=== PATIENT | male | born 1960 | race Caucasian/White ===

== ENCOUNTER 2020-09-17 10:59 | Inpatient (IN) | payer MEDICAID, SELFPAY ==
[2020-09-17] VITALS (9 sets, daily range): BP systolic 144–174; BP diastolic 80–94; PULSE 70–89; RESP 16–18; TEMP 36.3–37; O2SAT 84–98; BMI 17.3; BMI 17.4
--- NOTE | 2020-09-17 11:03 | HMH.EDGENADL ---
ED Disposition Clinical Impression: Hypoxia, COPD exacerbation, Hypokalemia Pneumonia Qualifiers: Pneumonia type: due to unspecified organism Laterality: bilateral Lung location: unspecified part of lung Qualified Code(s): J18.9 - Pneumonia, unspecified organism Disposition: Admitted As Inpatient Condition on Discharge: Fair Referrals: PCP,No [Primary Care Provider] - - Critical Care Critical Care Time: No Attestation: On , the high probability of a clinically significant, sudden or life threatening deterioration of the following system(s) required my full and direct attention, intervention and personal management. The time I documented below is in addition to time spent performing reported procedures but includes the following listed in this critical care notation. Medical Decision Making - Medical Records Medical records reviewed: Yes: I reviewed the patient's medical records. - Harvey Inquiry Pt receiving controlled substance: No Vital Signs: 09/17/20 11:00 09/17/20 11:50 09/17/20 12:21 Temperature 98.6 F Temperature Source Oral Pulse Rate [Right] 77 80 70 Respiratory Rate 18 Blood Pressure [Right Arm] 144/90 H 157/91 H Blood Pressure Mean [Right Arm] 108 113 Blood Pressure Source [Right Arm] Automatic Cuff Automatic Cuff Automatic Cuff Blood Pressure Position [Right Arm] Sitting Sitting Sitting 02 Sat by Pulse Oximetry 91 L 91 L 92 L Oxygen Delivery Method Room Air Nasal Cannula Nasal Cannula Nasal Cannula Oxygen Flow Rate (LPM) 2 6 6 - Lab Data Lab Results 09/17/20 12:15: WBC 10.8, RBC 3.83 L, Hgb 10.9 L, Hct 33.1 L, MCV 86.6, MCH 28.4, MCHC 32.8, RDW 15.2, Plt Count 361, MPV 7.8, Neut % (Auto) 92.7 H, Lymph % (Auto) 5.0 L, [place] % (Auto) 2.1, Eos % (Auto) 0.0 L, Baso % (Auto) 0.1, Neut # (Auto) 10.1 H, Lymph # (Auto) 0.5 L, [place] # (Auto) 0.2, Eos # (Auto) 0.0, Baso # (Auto) 0.0, Total Counted 100, Neutrophils % (Manual) 91 H, Lymphocytes % (Manual) 6 L, Monocytes % (Manual) 3, Platelet Estimate Normal, RBC Morphology Normal 09/17/20 12:15: Sodium 142, Potassium 2.4 L*, Chloride 96 L, Carbon Dioxide 40 H, Anion Gap 8.4, BUN 22 H, Creatinine 0.90, Estimated Creat Clear 73, Estimated GFR 86, Est GFR ( Amer) 105, Glucose 94, Calcium 9.1, Troponin I < 0.01 09/17/20 12:15: NT-Pro-B Natriuret Pep 1080 H 09/17/20 12:15: Magnesium 1.7 Result diagrams: 09/17/20 12:15 09/17/20 12:15 Orders (Tests/Meds): ED MEDICATIONS Generic Name Dose Route Start Last Admin Trade Name Freq PRN Reason Stop Dose Admin Potassium Chloride/Water 100 mls @ 50 mls/hr 09/17/20 12:38 Potassium Chloride 20meq/100ml Ivpb IV 09/17/20 16:37 Q2H MARIEL Cefepime HCl 2 gm/ Sodium 100 mls @ 200 mls/hr 09/17/20 13:15 09/17/20 13:23 Chloride IV 10/01/20 13:14 200 mls/hr Q12H MARIEL Administration Protocol Miscellaneous 1 each 09/17/20 13:15 Vancomycin Consult Request * 10/17/20 13:14 CONSULT PHARMACY MARIEL Discontinued Medications Generic Name Dose Route Start Last Admin Trade Name Freq PRN Reason Stop Dose Admin Albuterol/Ipratropium 2 puff 09/17/20 11:05 09/17/20 11:36 Combivent 20mcg/100mcg Respimat Inhaler IH 09/17/20 11:06 2 puff ONCE ONE Administration Lactated Ringer's 1,000 mls @ 999 mls/hr 09/17/20 11:15 09/17/20 12:10 Lactated Ringer's 1000 Ml Bag IV 09/17/20 12:15 999 mls/hr .Q1H1M MARIEL Administration Iopamidol 70 ml 09/17/20 13:00 09/17/20 13:01 Iopamidol-370 (76%);100ml Bottle IV 09/17/20 13:01 70 ml ONCE ONE Administration Miscellaneous 1 unit 09/17/20 11:05 09/17/20 11:36 Aerochamber/Optihaler MC 09/17/20 11:06 Not Given ONCE ONE Potassium Chloride 40 meq 09/17/20 12:37 09/17/20 13:25 Potassium Chloride 20meq Tab PO 09/17/20 12:38 40 meq ONCE ONE Administration Prednisone 60 mg 09/17/20 11:05 09/17/20 12:09 Prednisone 20mg Tab PO 09/17/20 11:06 60 mg ONCE ONE Administration Sodium Chloride 1
--- NOTE | 2020-09-17 11:05 | CT_ITS ---
PROCEDURE: CT ANGIO CHEST CLINCIAL INDICATION: acute hypoxia recently discharged from hospital [place] COMPARISON: CR XR CHEST PORTABLE from 09/17/2020 TECHNIQUE: IV Contrast: 70ML Isovue 370 Axial images obtained with sagittal and coronal reformats. All CT scans at the facility use one or more dose reduction, viz: automated exposure control, ma/kV adjustment per patient size (including targeted exams where dose is matched to indication, i.e. head), or iterative reconstruction technique. FINDINGS: HEART AND MEDIASTINAL STRUCTURES: No evidence of pulmonary embolus, aortic aneurysm, or aortic dissection. Or coronary artery calcifications are present. There is an overall slight increased density of the mediastinal and hilar fat of questionable clinical significance. LUNGS AND PLEURAL SPACES: There are changes of COPD. There is superimposed ground-glass attenuation upon COPD/pulmonary fibrosis changes resulting in a crazy paving pattern most prominent in the right lower lobe but also in the left lower lobe. Covid19 pneumonia is considered. There are coalescent densities in both lower lobes consistent with pneumonia. Nodular opacities are present in the left lower lobe and in the right lower lobe as well which could be due to nodular areas of consolidation versus pulmonary nodules. Convalescent follow-up is suggested. BONY STRUCTURES: Degenerative changes thoracic spine UPPER ABDOMEN: The patient's lack of body fat limits evaluation of the abdomen. There is a subcapsular area of I so density along the right hepatic lobe posteriorly measuring 4 by 1.2 cm and could represent a resolving subcapsular hematoma. There is splenomegaly at 13 cm. There is generalized ascites in the upper abdomen. Patchy enhancement noted of the kidneys on both sides and could be due bilateral pyelonephritis or sequela from hypotension. There are atherosclerotic changes of the aorta and its branch vessels. There is left-sided hydronephrosis versus parapelvic renal cyst. Borderline splenomegaly at 13 cm. ADDITIONAL FINDINGS: No other significant abnormalities. IMPRESSION: 1. No evidence of pulmonary embolus aortic aneurysm or dissection. 2. Diffuse bilateral pneumonia with apical sparing with a crazy paving pattern which may be seen with Covid19 pneumonia superimposed upon COPD. There is also alveolar consolidation in the right lower lobe consistent with pneumonia. No effusions. 3. There is upper abdominal ascites with borderline splenomegaly and a suspected resolving subcapsular hematoma of the liver posteriorly 4. Patchy enhancement of the cortex of both kidneys which may be seen with pyelonephritis or hypotension. There is left-sided hydronephrosis versus parapelvic renal cyst. Dictated by: Zechariah Blake MD 09/17/2020 13:25 Zechariah Blake MD in [place] 09/17/2020 13:25
--- NOTE | 2020-09-17 11:05 | XR_ITS ---
PROCEDURE: XR CHEST PORTABLE CLINICAL HISTORY: COPD with hypoxia COMPARISON: No exams were available for comparison FINDINGS: The cardiomediastinal silhouette and pulmonary vascularity are within normal limits. COPD changes with prominent bilateral lower lobe pneumonia with associated pulmonary fibrosis.. The pneumonia is worse on the right compared to the left. There are some atelectatic or fibrotic changes in the left lower lobe. No acute bony findings. IMPRESSION: COPD with pulmonary fibrosis with bilateral pneumonia Dictated by: Zechariah Blake MD 09/17/2020 11:58 Zechariah Blake MD in [place] 09/17/2020 11:58
--- NOTE | 2020-09-17 11:08 | PC.NURSE ---
RT called to come give inhaler to pt.
--- NOTE | 2020-09-17 11:23 | ECG_ITS ---
APPROVED REPORT Exam: Resting ECG HR:88 bpm ECG Measurements Heart Rate 88 AXES ME 120 P 71 QRSd 90 QRS 66 QT 456 T 73 QTc 551 Conclusion Sinus rhythm with premature supraventricular complexes Possible Left atrial enlargement ST & T wave abnormality, consider inferolateral ischemia Prolonged QT Abnormal ECG Electronically signed by : Jose Ring, 09/18/2020 11:57:58
--- NOTE | 2020-09-17 11:45 | PC.NURSE ---
placed 20g in upper arm with US
--- NOTE | 2020-09-17 11:58 | PC.NURSE ---
inserted IV via US notified lab to come draw blood
[2020-09-17 12:31] LABS: Chloride 96 mmol/L (98-107); Sodium 142 mmol/L (136-145)
[2020-09-17 12:32] LABS: Basophils % 0.1 % (0.1-2.0); Hematocrit 33.1 % (42.0-52.0); Hemoglobin 10.9 g/dL (14.1-18.0); Lymphocytes # 0.5 K/mm3 (0.7-4.5); Mean Corpuscular HGB Conc 32.8 g/dL (31.8-35.4); Mean Corpuscular Hemoglobin 28.4 pg (27.0-31.2); Mean Corpuscular Volume 86.6 fl (80-94); Mean Platelet Volume 7.8 fl (7.4-10.4); Monocytes # 0.2 K/mm3 (0.1-1.0); Monocytes % 2.1 % (1.7-9.3); Neutrophils # 10.1 K/mm3 (1.8-7.8); Neutrophils % 92.7 % (37.0-80.0); Platelet Count 361 K/mm3 (142-424); Red Blood Count 3.83 M/mm3 (4.60-6.20); Red Cell Distribution Width 15.2 % (11.5-17.5); White Blood Count 10.8 K/mm3 (4.8-10.8)
[2020-09-17 12:34] LABS: Blood Urea Nitrogen 22 mg/dl (9-20); Calcium 9.1 mg/dl (8.4-10.2); Creatinine Clearance Estimated 73 mL/min (50-200); Estimated Glomerular Filt Rate 86 ml/min (>60); GFR (African American) 105 ML/MIN (>60); Glucose 94 mg/dl (74-100)
[2020-09-17 12:35] LABS: Potassium 2.4 mmoL/L (3.5-5.1)
[2020-09-17 12:36] LABS: Anion Gap 8.4 mEq/L (5-15); Carbon Dioxide 40 mmol/L (22.0-30.0); MANUAL DIFFERENTIAL MANUAL DIFFERENTIAL (MANUAL DIFF)
[2020-09-17 12:45] LABS: NT Pro Brain Natriuretic Pep. 1080 pg/mL (0-125)
[2020-09-17 12:46] LABS: Adenovirus,PCR Not Detected (NotDetected); Bordetella Pertussis Not Detected (NotDetected); Chlamydophila Pneumoniae, PCR Not Detected (NotDetected); Coronavirus 229E Not Detected (NotDetected); Coronavirus NL63 Not Detected (NotDetected); Coronavirus OC43 Not Detected (NotDetected); Coronovirus HKU1,PCR Not Detected (NotDetected); Human Metapneumovirus Not Detected (NotDetected); Influenza A, PCR Not Detected (NotDetected); Influenza AH1, 2009 Not Detected (NotDetected); Influenza AH1, PCR Not Detected (NotDetected); Influenza AH3,PCR Not Detected (NotDetected); Influenza B, PCR Not Detected (NotDetected); Mycoplasma Pneumoniae, PCR Not Detected (NotDetected); Parainfluenza 1, PCR Not Detected (NotDetected); Parainfluenza 2, PCR Not Detected (NotDetected); Parainfluenza 3, PCR Not Detected (NotDetected); Parainfluenza 4, PCR Not Detected (NotDetected); Respiratory Syncytial Virus Not Detected (NotDetected); Rhinovirus/Enterovirus Not Detected (NotDetected)
[2020-09-17 12:48] LABS: Troponin I < 0.01 ng/ml (0.00-0.034)
[2020-09-17 13:11] LABS: Lymphocytes % 6 % (10-50); Monocytes % 3 % (2-9); Neutrophils % 91 % (42-76); Platelet Estimate Normal; RBC Morphology Normal; Total Cells Counted 100
--- NOTE | 2020-09-17 13:20 | PC.NURSE ---
Pt up to restroom by w/c
[2020-09-17 13:25] LABS: Magnesium 1.7 mg/dl (1.6-2.3)
--- NOTE | 2020-09-17 13:34 | PC.NURSE ---
pt reports he is no straws with drinks r/t aspiration risk.
--- NOTE | 2020-09-17 13:39 | PC.NURSE ---
Dr Breen speaking with Dr Thompson.
[2020-09-17 13:48] LABS: Coronavirus 19 IgG Antibody Positive (Negative)
[2020-09-17 13:49] LABS: Coronavirus 19 IgM Antibody Positive (Negative)
--- NOTE | 2020-09-17 13:50 | PC.NURSE ---
notified pharmacy of vancomycin consult on pt, spoke with Igor
--- NOTE | 2020-09-17 14:03 | HMH.PHACONS ---
- Pharmacy Consult Date: 09/17/20 Time: 14:03 Referring provider: DR. LUIS Reason for Consult:: VANCOMYCIN DOSING Allergies and ADEs:: Allergies Allergy/AdvReac Type Severity Reaction Status Date / Time No Known Allergies Allergy Verified 09/17/20 11:08 Home Medications:: Home Medications Medication Instructions Recorded Confirmed Type No Known Home Medications 09/17/20 09/17/20 History Height: 1.83 m Weight: 58.06 kg Laboratory Results:: Laboratory Results - last 24 hr 09/17/20 12:15: WBC 10.8, RBC 3.83 L, Hgb 10.9 L, Hct 33.1 L, MCV 86.6, MCH 28.4, MCHC 32.8, RDW 15.2, Plt Count 361, MPV 7.8, Neut % (Auto) 92.7 H, Lymph % (Auto) 5.0 L, [place] % (Auto) 2.1, Eos % (Auto) 0.0 L, Baso % (Auto) 0.1, Neut # (Auto) 10.1 H, Lymph # (Auto) 0.5 L, [place] # (Auto) 0.2, Eos # (Auto) 0.0, Baso # (Auto) 0.0, Total Counted 100, Neutrophils % (Manual) 91 H, Lymphocytes % (Manual) 6 L, Monocytes % (Manual) 3, Platelet Estimate Normal, RBC Morphology Normal 09/17/20 12:15: Sodium 142, Potassium 2.4 L*, Chloride 96 L, Carbon Dioxide 40 H, Anion Gap 8.4, BUN 22 H, Creatinine 0.90, Estimated Creat Clear 73, Estimated GFR 86, Est GFR ( Amer) 105, Glucose 94, Calcium 9.1, Troponin I < 0.01 09/17/20 12:15: NT-Pro-B Natriuret Pep 1080 H 09/17/20 12:15: Magnesium 1.7 09/17/20 12:15: SARS-CoV-2 IgG Ab (Rapid) Positive A, SARS-CoV-2 IgM Ab (Rapid) Positive A Assessment and Plan - Assessment and plan all Dx Assessment and Plan for all problems:: Pharmacokinetic dosing service Objective: Patient: Floor: Age: 60 yo Serum creatinine: 0.9 mg/dL Height: 71.7 Inches Weight (kg): 58 Assessment: IBW (kg): 76.91 Dosing wt(kg): 58 Estimated Creatinine clearance (ml/min): 72.5 CRCL method: Cockcroft and Gault using ibw(default). Drug selected: Vancomycin Loading dose (mg): 0 Vd (liters): 37.7 (factor used: 0.65 L/kg) Feroz (hr-1): 0.065 Half life (hrs): 10.66 Recommended dose: 1000 mg Interval: 18 hrs Infusion time (hrs): 2.0 Predicted peak (mcg/mL): 36.1 Predicted trough (mcg/mL): 12.76 Total body weight is being used for vancomycin dosing. Recommendations: Give Vancomycin 1000 mg q 18 hrs with an expected Cpeak of 36.1 mcg/ml and an expected Ctrough of 12.76 mcg/ml Thank you for the consult, will continue to follow. -SAMUEL BARTHOLOMEW, MOISESD
--- NOTE | 2020-09-17 14:16 | PC.NURSE ---
Family left phone number to contact them if pt needed anything. [phone]
--- NOTE | 2020-09-17 14:59 | PC.NURSE ---
lab called with a positive covid result aware
[2020-09-17 15:01] LABS: Coronavirus 19, PCR Detected (NotDetected)
[2020-09-17 15:13] LABS: Troponin I < 0.01 ng/ml (0.00-0.034)
--- NOTE | 2020-09-17 17:04 | HMH.HP ---
*Admission Date: 09/17/20 <Miriam Overton - 09/17/20 17:43> *Chief complaint: Shortness of breath <Miriam Overton - 09/17/20 17:43> *History of present illness: Mr. Sawant is a 60-year-old male with history of tobacco abuse and hypertension, COPD and recent colostomy secondary to bowel perforation and discharged from the hospital on 09/07/2020 who presented to [facility] complaining of shortness of breath. He states the dyspnea started about 3 days ago and has progressed. He also describes a cough which is mostly nonproductive. He was recently started on inhalers since diagnosis of COPD and has been using it with minimal relief. When he went outside this morning to smoke he had worsening shortness of breath. He denied chest pain, fever/chills and other respiratory symptoms. On arrival to the emergency room his saturations on room air was around 80%. He did have some conversational dyspnea With evaluation in the emergency room he was found to have a potassium of 2.4 and was given IV potassium. O2 sats did improve with nasal O2. The concern was for hospital-acquired pneumonia and he was started on vancomycin and cefepime for MRSA/Pseudomonas coverage. CBC revealed a white blood cell count of 10,800 with a hemoglobin of 10.9 hematocrit of 33.1. Blood chemistries did reveal the potassium of 2.4 with a sodium of 142. BUN was 22 and a creatinine 0.9. Magnesium was normal at 1.7. Troponin I was 0.01x2. BNP was 1080. Covid PCR was positive as were IgG and IgM. He had a CTA of the chest to rule out pulmonary embolism due to his recent surgery which revealed no evidence of pulmonary emboli, aortic aneurysm or dissection. It did reveal diffuse bilateral pneumonia with apical sparing with a crazy paving pattern often seen with COVID-19 pneumonia superimposed upon COPD. Also noted were a large consolidation in the right lower lobe consistent with pneumonia and no effusions. He also was noted to have abdominal ascites with borderline splenomegaly and a suspected resolving subcapsular hematoma of the liver posteriorly as well as patchy enhancement of the cortex of both kidneys which may be seen with pyelonephritis or hypotension. Patient was admitted for further evaluation and treatment to the Covid unit. At the time of this exam patient states he was breathing fine and denied chest pain. He was thirsty and requested Pop. <Miriam Overton 09/17/20 17:43> [facility] History Medical History: Reports:: Chronic Obstructive Pulmonary Disease (COPD), Depression, Gastroesophageal Reflux Disease(GERD), Hypertension Denies:: Diabetes Mellitus Type 2 <Miriam Overton 09/17/20 17:43> *Have you ever received a pneumonia vaccine?: No <Miriam Overton 09/17/20 17:43> *Have you received a flu vaccine this season?: Yes <Miriam Overton 09/17/20 17:43> Other Medical History: Reports: Anemia <Miriam Overton 09/17/20 17:43> Comment:: He has had an accidental head injury and has chronic back pain <TianMiriam Santos 09/17/20 17:43> Other Surgeries: Yes: Other <Miriam Overton 09/17/20 17:43> Comment: Colon resection with colostomy for perforation in August 2020. <Miriam Overton 09/17/20 17:43> - *Social History Smoking Status: Current every day smoker <Miriam Overton 09/17/20 17:43> *Occupational Status:: previously employed <Miriam Overton 09/17/20 17:43> Housing: house <Miriam Overton 09/17/20 17:43> Household Members: family <Miriam Overton 09/17/20 17:43> *Travel in the last 8 weeks: None <Miriam Overton 09/17/20 17:43> Family Hx:: no Diabetes <TianMiriam Santos 09/17/20 17:43> Comment: Heart disease <TianMiriam Santos 09/17/20 17:43> Review of Systems - Constitutional Reports fever(s), Reports weight loss (He has lost 30 pounds in the last few months.) <Overton,Miriam 09/17/20 17:43> - Eyes Denies change in vision <Miriam Overton 09/17/20 17:43> - ENT Reports dry mouth, Denies ear pain, Denies sore throat <Tian
[2020-09-17 20:00] LABS: Troponin I < 0.01 ng/ml (0.00-0.034)
--- NOTE | 2020-09-17 21:34 | PC.NURSE ---
open wound to coccyx 5 x2.5x0.5. dsg applied. Redness surrounding wound. Serous drainage with mod odor on old dressing .
[2020-09-18] VITALS: BP 146/84; PULSE 69; RESP 18; TEMP 36.6; O2SAT 95
[2020-09-18 04:00] VITALS: BP 160/90; PULSE 73; RESP 20; TEMP 36.6; O2SAT 95
--- NOTE | 2020-09-18 05:15 | PC.NURSE ---
Pt A&Ox4. Inspiratory and Expiratory rhonchi heard scattered t/o all lung still per auscultation. Pt continues to be on 4L NC with o2 sats sustaining between 90-92%. +2 pitting edema noted at bilat ankles and feet. Open area to coccyx received a dressing change this shift. Previous dressing had moderate amount of yellow drainage. Polynem and ABD pads were applied to the area. Pt c/o lower back pain x1 this shift. PRN acetaminophen administered per DEC. Pt's home meds are in COVMO units clean utility room at this time. No other acute changes or complaints at this time. Will continue to monitor.
[2020-09-18 05:30] VITALS: BMI 15.5
--- NOTE | 2020-09-18 05:31 | PC.NURSE ---
nurse is aware of the difference in the patients weight. there wasnt a scale in patients room when we went to weigh him.the other weight charted may be what patient told them.
--- NOTE | 2020-09-18 06:15 | PC.NURSE ---
Pt fell in room while getting up from using bedpan on arm chair. Pt states he tripped over the chair of the arm when attempting to get up. When staff entered pt's room NC was off. This nurse assessed pt and he remained A&O. VSS: 173/102 90 HR 22 RR 86% 4 L NC (when pt was on RA, o2 sat was 68%) Pt c/o right and left hip pain. Upon assessment, hips were not red or tender to touch. 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 MD Thompson made aware. Bilat hip XR ordered.
--- NOTE | 2020-09-18 06:25 | XR_ITS ---
PROCEDURE: XR HIP BI W PEL1V CLINICAL INDICATION: pt fell Posttraumatic pain COMPARISON: No exams were available for comparison FINDINGS: No fracture or dislocation is evident. No significant degenerative change. No lytic or blastic change. Unremarkable soft tissues. Contrast is present in the urinary bladder and there is also increased density about the perineal region which may be related to excreted urine. IMPRESSION: No acute findings. Dictated by: Zechariah Blake MD 09/18/2020 08:41 Zechariah Blake MD in [place] 09/18/2020 08:41
[2020-09-18 07:30] VITALS: BP 154/93; PULSE 89; RESP 18; TEMP 36.3; O2SAT 82
--- NOTE | 2020-09-18 07:53 | HMH.PHAVTE ---
[facility] Pharmacy VTE Monitoring - Patient Demographics Admission date: 09/17/20 Report Date: 09/18/20 Time: 07:53 Allergies/Adverse Reactions: Patient Allergies No Known Allergies Allergy (Verified 09/17/20 11:08) Height: 1.83 m Weight: 52.163 kg Patient Problems: Current Active Problems Hypoxia (Acute) COPD exacerbation (Acute) Hypokalemia (Acute) Pneumonia (Acute) Body mass index [BMI] 19.9 or less, adult (Chronic) COVID-19 (Acute) Pneumonia due to COVID-19 virus (Acute) Acute respiratory failure with hypoxia (Acute) Hypertension (Acute) Status post colon resection (Chronic) Colostomy in place (Chronic) Hypokalemia (Acute) Tobacco use disorder (Acute) COPD (chronic obstructive pulmonary disease) (Acute) - VTE Risk Labs: VTE Related Lab Results Hgb 10.9 g/dL (14.1-18.0) L 09/17/20 12:15 Hct 33.1 % (42.0-52.0) L 09/17/20 12:15 Plt Count 361 K/mm3 (142-424) 09/17/20 12:15 BUN 22 mg/dl (9-20) H 09/17/20 12:15 Creatinine 0.90 mg/dl (0.66-1.25) 09/17/20 12:15 Estimated Creat Clear 73 mL/min (50-200) 09/17/20 12:15 Clinical Trial Participant: No - Prophylaxis VTE Prophylaxis Ordered?: Yes Types of VTE Prophylaxis: TEDS Knee High Location of Applied Device: Bilateral Lower Extremeties Pharmacologic Type: Enoxaparin
[2020-09-18 08:12] LABS: Basophils % 0.2 % (0.1-2.0); Hematocrit 32.7 % (42.0-52.0); Hemoglobin 10.5 g/dL (14.1-18.0); Lymphocytes # 0.7 K/mm3 (0.7-4.5); Lymphocytes % 8.2 % (10-50); Mean Corpuscular Volume 87.7 fl (80-94); Mean Platelet Volume 7.9 fl (7.4-10.4); Monocytes # 0.3 K/mm3 (0.1-1.0); Monocytes % 2.9 % (1.7-9.3); Neutrophils # 7.7 K/mm3 (1.8-7.8); Neutrophils % 88.6 % (37.0-80.0); Platelet Count 377 K/mm3 (142-424); Red Blood Count 3.73 M/mm3 (4.60-6.20); Red Cell Distribution Width 15.6 % (11.5-17.5); White Blood Count 8.6 K/mm3 (4.8-10.8)
[2020-09-18 08:14] LABS: MANUAL DIFFERENTIAL MANUAL DIFFERENTIAL (MANUAL DIFF)
[2020-09-18 08:17] LABS: Chloride 99 mmol/L (98-107); Potassium 3.1 mmoL/L (3.5-5.1); Sodium 139 mmol/L (136-145)
[2020-09-18 08:20] LABS: Alanine Aminotransferase 53 U/L (12-78); Albumin Level 2.7 g/dl (3.5-5.0); Albumin/Globulin Ratio 0.7 (1.1-1.8); Alkaline Phosphatase 294 U/L (38-126); Anion Gap 7.1 mEq/L (5-15); Aspartate Amino Transferase 95 U/L (17-59); Bilirubin,Total 0.5 mg/dl (0.2-1.3); Blood Urea Nitrogen 29 mg/dl (9-20); Calcium 9.1 mg/dl (8.4-10.2); Carbon Dioxide 36 mmol/L (22.0-30.0); Creatinine Clearance Estimated 65 mL/min (50-200); Estimated Glomerular Filt Rate 86 ml/min (>60); GFR (African American) 105 ML/MIN (>60); Globulin 3.7 g/dL (1.3-3.2); Glucose 124 mg/dl (74-100); Total Protein,Serum 6.4 g/dl (6.3-8.2)
[2020-09-18 08:35] LABS: Lymphocytes % 6 % (10-50); Monocytes % 2 % (2-9); Neutrophils % 92 % (42-76); Platelet Estimate Normal; RBC Morphology Normal; Total Cells Counted 100
--- NOTE | 2020-09-18 08:49 | HMH.ACPN2 ---
Internal Medicine - PN: Subj *Date: 09/18/20 *Time: 08:49 Interval history: Respiratory status stable over night although has not always been compliant with wearing his O2. He did fall this AM while out of bed. Hit on right hip. Xray negative for fracture. Denies SOA. Exam Vital signs and Labs for Last 24 Hours: Temp Pulse Resp BP Pulse Ox 97.3 F L 89 18 154/93 H 82 L 09/18/20 07:30 09/18/20 07:30 09/18/20 07:30 09/18/20 07:30 09/18/20 07:30 Laboratory Results - last 24 hr 09/17/20 12:15: WBC 10.8, RBC 3.83 L, Hgb 10.9 L, Hct 33.1 L, MCV 86.6, MCH 28.4, MCHC 32.8, RDW 15.2, Plt Count 361, MPV 7.8, Neut % (Auto) 92.7 H, Lymph % (Auto) 5.0 L, [place] % (Auto) 2.1, Eos % (Auto) 0.0 L, Baso % (Auto) 0.1, Neut # (Auto) 10.1 H, Lymph # (Auto) 0.5 L, [place] # (Auto) 0.2, Eos # (Auto) 0.0, Baso # (Auto) 0.0, Total Counted 100, Neutrophils % (Manual) 91 H, Lymphocytes % (Manual) 6 L, Monocytes % (Manual) 3, Platelet Estimate Normal, RBC Morphology Normal 09/17/20 12:15: Sodium 142, Potassium 2.4 L*, Chloride 96 L, Carbon Dioxide 40 H, Anion Gap 8.4, BUN 22 H, Creatinine 0.90, Estimated Creat Clear 73, Estimated GFR 86, Est GFR ( Amer) 105, Glucose 94, Calcium 9.1, Troponin I < 0.01 09/17/20 12:15: NT-Pro-B Natriuret Pep 1080 H 09/17/20 12:15: Magnesium 1.7 09/17/20 12:15: SARS-CoV-2 IgG Ab (Rapid) Positive A, SARS-CoV-2 IgM Ab (Rapid) Positive A 09/17/20 12:38: Chlamy pneumoniae PCR Not detected, Adenovirus (PCR) Not detected, B. pertussis DNA (PCR) Not detected, Coronavirus OC43 (PCR) Not detected, Coronavirus HKU1 (PCR) Not detected, Coronavirus 229E (PCR) Not detected, SARS-CoV-2 (PCR) Detected A, Coronavirus NL63 (PCR) Not detected, Human Metapneumovir PCR Not detected, Influenza A (H1) PCR Not detected, Influ A (H1N1/09) PCR Not detected, Influenza A (H3) PCR Not detected, Influenza Type A (PCR) Not detected, Influenza Type B (PCR) Not detected, M. pneumoniae (PCR) Not detected, Parainfluenza 1 (PCR) Not detected, Parainfluenza 2 (PCR) Not detected, Parainfluenza 3 (PCR) Not detected, Parainfluenza 4 (PCR) Not detected, RSV (PCR) Not detected, Entero/Rhino (PCR) Not detected 09/17/20 14:45: Troponin I < 0.01 09/17/20 18:56: Troponin I < 0.01 09/18/20 08:00: WBC 8.6, RBC 3.73 L, Hgb 10.5 L, Hct 32.7 L, MCV 87.7, MCH 28.0, MCHC 32.0, RDW 15.6, Plt Count 377, MPV 7.9, Neut % (Auto) 88.6 H, Lymph % (Auto) 8.2 L, [place] % (Auto) 2.9, Eos % (Auto) 0.0 L, Baso % (Auto) 0.2, Neut # (Auto) 7.7, Lymph # (Auto) 0.7, [place] # (Auto) 0.3, Eos # (Auto) 0.0, Baso # (Auto) 0.0, Total Counted 100, Neutrophils % (Manual) 92 H, Lymphocytes % (Manual) 6 L, Monocytes % (Manual) 2, Platelet Estimate Normal, RBC Morphology Normal 09/18/20 08:00: Sodium 139, Potassium 3.1 L D, Chloride 99, Carbon Dioxide 36 H, Anion Gap 7.1, BUN 29 H D, Creatinine 0.90, Estimated Creat Clear 65, Estimated GFR 86, Est GFR ( Amer) 105, Glucose 124 H D, Calcium 9.1, Total Bilirubin 0.5, AST 95 H, ALT 53, Alkaline Phosphatase 294 H, Total Protein 6.4, Albumin 2.7 L, Globulin 3.7 H, Albumin/Globulin Ratio 0.7 L I & O for Last 24 hours: Intake & Output 09/15/20 09/16/20 09/17/20 09/18/20 11:59 11:59 11:59 11:59 Intake Total 480 / 480 Output Total 1300 / 1300 Balance -820 / -820 Weight 128 lb 115 lb Narrative: Alert, no respiratory distress. Color normal. CHest with generally diminished BS. Heart RRR. Abdomen soft, NT. RIght hip with bruising or deformity. Assessment and Plan (1) Pneumonia due to COVID-19 virus Status: Acute Category: Medical Code(s): U07.1 - COVID-19; J12.89 - Other viral pneumonia (2) COVID-19 Status: Acute Category: Medical Code(s): U07.1 - COVID-19 (3) Body mass index [BMI] 19.9 or less, adult Status: Chronic Category: Medical Code(s): Z68.1 - Body mass index [BMI] 19.9 or less, adult (4) Acute respiratory failure with hypoxia Status: Acute Category: Medical Code(s): J96.01 - Acute respiratory failur
--- NOTE | 2020-09-18 09:05 | HMH.PHAINT ---
Medication reconciliation completed using lists from pharmacy and physician office.
[2020-09-18 11:58] VITALS: BMI 15.5
[2020-09-18 12:00] VITALS: BP 169/97; PULSE 73; RESP 18; TEMP 36.2; O2SAT 92
[2020-09-18 16:00] VITALS: BP 153/98; PULSE 77; RESP 18; TEMP 36.4; O2SAT 96; O2SAT 97
--- NOTE | 2020-09-18 17:41 | PC.NURSE ---
shift note: pt has had an uneventful day. Complains of right hip pain at times from the fall last night. Pain relieved with Tylenol 1000mg po. Is tolerating a soft low fiber diet. On 6L NC cont with sats above 90%. Stage II noted to coccyx area. Asked to redress area and offered bath. He refused both today. Colostomy bag emptied once. Stool is brown and soft. He sat on bedpan in arm chair once today and passed mucus stool. 2+ pitting edema noted to BLE from mid calf to toes. Bilateral lungs clear. Cough is dry and hacky.
[2020-09-18 20:00] VITALS: BP 163/97; PULSE 76; RESP 18; TEMP 36.3; O2SAT 98
[2020-09-19] VITALS (10 sets, daily range): BP systolic 151–177; BP diastolic 88–99; PULSE 74–100; RESP 18–24; TEMP 36.4–36.7; O2SAT 86–96; BMI 16.2
--- NOTE | 2020-09-19 05:50 | PC.NURSE ---
patient has been successfully titrated down to 2 l nc. patient will desat to 82% with activity. recovers back to mid 90s within 20 min. breath sounds remain diminished throughout, respiratory rate below 20. patient has had cooperative and appropriate this shift. voiding clear, yellow urine.
--- NOTE | 2020-09-19 15:34 | PC.NURSE ---
Pt has been pleasant and cooperative this shift, remains on 2LNC at this time, oxygen saturations decrease with exertion and takes around 15 minutes to recover at rest, lung sounds diminished t/o, HR reg, 2+ pitting peripheral edema noted to BLE, alert and oriented x3, perrla, passenger conductor equal, colostomy with drainage bag intact, moderate output, voids per urinal without difficulty, abd soft and nontender, active bowel sounds in all quads, patient has stage II to coccyx with dsg in place, vss, no s/s of distress noted at this time, will continue to monitor for changes.
--- NOTE | 2020-09-19 17:06 | HMH.ACPN2 ---
Internal Medicine - PN: Subj *Date: 09/19/20 *Time: 17:06 Interval history: His only complaint is hip pain from his fall yesterday and chronic low back pain. He is requesting to start on pain medication he takes at home. From a respiratory standpoint he is stable. He denies shortness of breath. No significant cough. Room air sats are still dropping. Exam Vital signs and Labs for Last 24 Hours: Temp Pulse Resp BP Pulse Ox 97.5 F L 79 20 159/88 H 93 L 09/19/20 15:37 09/19/20 15:37 09/19/20 15:37 09/19/20 15:37 09/19/20 16:00 I & O for Last 24 hours: Intake & Output 09/17/20 09/18/20 09/19/20 09/20/20 11:59 11:59 11:59 11:59 Intake Total 480 / 480 1390 / 1390 440 / 440 Output Total 1700 / 1700 3550 / 3550 Balance -1220 / -1220 -2160 / -2160 440 / 440 Weight 128 lb 114 lb 10.246 oz 119 lb 8.589 oz Narrative: No respiratory distress. Breath sounds are generally diminished. No rales or wheezes. Heart is regular. Abdomen is soft and nontender. Extremities with pedal edema Assessment and Plan (1) Pneumonia due to COVID-19 virus Status: Acute Category: Medical Code(s): U07.1 - COVID-19; J12.89 - Other viral pneumonia (2) COVID-19 Status: Acute Category: Medical Code(s): U07.1 - COVID-19 (3) Body mass index [BMI] 19.9 or less, adult Status: Chronic Category: Medical Code(s): Z68.1 - Body mass index [BMI] 19.9 or less, adult (4) Acute respiratory failure with hypoxia Status: Acute Category: Medical Code(s): J96.01 - Acute respiratory failure with hypoxia (5) Hypertension Status: Acute Category: Medical Code(s): I10 - Essential (primary) hypertension (6) Status post colon resection Status: Chronic Category: Surgical Code(s): Z90.49 - Acquired absence of other specified parts of digestive tract (7) Colostomy in place Status: Chronic Category: Medical Code(s): Z93.3 - Colostomy status (8) Hypokalemia Status: Acute Category: Medical Code(s): E87.6 - Hypokalemia (9) Tobacco use disorder Status: Acute Category: Medical Code(s): F17.200 - Nicotine dependence, unspecified, uncomplicated (10) COPD (chronic obstructive pulmonary disease) Status: Acute Category: Medical Code(s): J44.9 - Chronic obstructive pulmonary disease, unspecified (11) Fall Status: Acute Category: Medical Code(s): W19.XXXA - Unspecified fall, initial encounter (12) Sacral decubitus ulcer Status: Acute Category: Medical Code(s): L89.159 - Pressure ulcer of sacral region, unspecified stage (13) Chronic back pain Status: Acute Category: Medical Code(s): M54.9 - Dorsalgia, unspecified; G89.29 - Other chronic pain - Assessment and plan all Dx Assessment and Plan for all problems:: Clinically stable. He has not produced a sputum. Continue current treatment. Add low-dose morphine for chronic back pain.
[2020-09-19 21:41] LABS: Vancomycin,Trough < 5.0 ug/mL (5.0-10.0)
--- NOTE | 2020-09-19 22:36 | PC.NURSE ---
[id number] received call from pharmacist after vanco trough results. order given to increase vancomycin dose. ordr faxed to pharmacy and carried out.
[2020-09-20] VITALS (9 sets, daily range): BP systolic 146–178; BP diastolic 75–104; PULSE 70–109; RESP 18–20; TEMP 35.8–36.7; O2SAT 85–99; BMI 15.5
--- NOTE | 2020-09-20 05:55 | PC.NURSE ---
pateint desats down to 82% with activity, recovers in about 20 mins back up into the mid 90s.
--- NOTE | 2020-09-20 08:53 | SW/DCPLANNER ---
Addendum entered by Linda Pereira 09/20/20 10:09: Lashaun with [employer] has stated that portable O2 tank will be delivered today. Original Note: This patient will need home O2 and portable tank at time of discharge per MD. Patient information and order will be faxed to [facility] this morning. I will have [facility] deliver portable tank to [facility] today due to possible discharge over weekend. I will follow up with [facility] once patient information and order is reviewed.
--- NOTE | 2020-09-20 08:58 | HMH.ACPN2 ---
Internal Medicine - PN: Subj *Date: 09/20/20 *Time: 08:32 Interval history: No new complaints. Still having some back pain. Denies shortness of breath. O2 sats dropping to 80% on room air but recover easily with 2 L of nasal oxygen Exam Vital signs and Labs for Last 24 Hours: Temp Pulse Resp BP Pulse Ox 97.2 F L 75 18 159/104 H 85 L 09/20/20 07:26 09/20/20 07:26 09/20/20 07:26 09/20/20 07:26 09/20/20 08:52 Laboratory Results - last 24 hr 09/19/20 20:30: Vancomycin Trough < 5.0 L I & O for Last 24 hours: Intake & Output 09/17/20 09/18/20 09/19/20 09/20/20 11:59 11:59 11:59 11:59 Intake Total 480 / 480 1390 / 1390 920 / 920 Output Total 1700 / 1700 3550 / 3550 1850 / 1850 Balance -1220 / -1220 -2160 / -2160 -930 / -930 Weight 128 lb 114 lb 10.246 oz 119 lb 8.589 oz 115 lb Narrative: He appears in no distress. Breath sounds are diminished. No rales or wheezes. Heart is regular. Extremities with 1+ pedal edema. Assessment and Plan (1) Pneumonia due to COVID-19 virus Status: Acute Category: Medical Code(s): U07.1 - COVID-19; J12.89 - Other viral pneumonia (2) COVID-19 Status: Acute Category: Medical Code(s): U07.1 - COVID-19 (3) Body mass index [BMI] 19.9 or less, adult Status: Chronic Category: Medical Code(s): Z68.1 - Body mass index [BMI] 19.9 or less, adult (4) Acute respiratory failure with hypoxia Status: Acute Category: Medical Code(s): J96.01 - Acute respiratory failure with hypoxia (5) Hypertension Status: Acute Category: Medical Code(s): I10 - Essential (primary) hypertension (6) Status post colon resection Status: Chronic Category: Surgical Code(s): Z90.49 - Acquired absence of other specified parts of digestive tract (7) Colostomy in place Status: Chronic Category: Medical Code(s): Z93.3 - Colostomy status (8) Hypokalemia Status: Acute Category: Medical Code(s): E87.6 - Hypokalemia (9) Tobacco use disorder Status: Acute Category: Medical Code(s): F17.200 - Nicotine dependence, unspecified, uncomplicated (10) COPD (chronic obstructive pulmonary disease) Status: Acute Category: Medical Code(s): J44.9 - Chronic obstructive pulmonary disease, unspecified (11) Fall Status: Acute Category: Medical Code(s): W19.XXXA - Unspecified fall, initial encounter (12) Sacral decubitus ulcer Status: Acute Category: Medical Code(s): L89.159 - Pressure ulcer of sacral region, unspecified stage (13) Chronic back pain Status: Acute Category: Medical Code(s): M54.9 - Dorsalgia, unspecified; G89.29 - Other chronic pain - Assessment and plan all Dx Assessment and Plan for all problems:: Clinically stable. Blood pressure has not been well controlled. Increased dose of Norvasc today. Oral potassium replacement added. Continue per orders.
--- NOTE | 2020-09-20 09:06 | HMH.PHACONS ---
- Pharmacy Consult Date: 09/20/20 Time: 09:06 Referring provider: DR. DAMICO Reason for Consult:: VANCOMYCIN TROUGH LEVEL AND DOSE CHANGE Allergies and ADEs:: Allergies Allergy/AdvReac Type Severity Reaction Status Date / Time No Known Allergies Allergy Verified 09/17/20 11:08 Home Medications:: Home Medications Medication Instructions Recorded Confirmed Type Albuterol Sulfate [Albuterol 2 puffs IH Q4HP PRN 09/17/20 09/17/20 History Sulfate Hfa] Amlodipine Besylate 5 mg PO DAILY 09/17/20 09/17/20 History Docusate Sodium [Docusate Sodium 100 mg PO DAILY 09/17/20 09/17/20 History 100mg Cap] Metoprolol Tartrate [Lopressor 12.5 mg PO BID 09/17/20 09/17/20 History 25mg tablet] Pantoprazole Sodium 40 mg PO DAILY 09/17/20 09/17/20 History Quetiapine Fumarate [Seroquel] 25 mg PO HS 09/17/20 09/17/20 History Tamsulosin HCl 0.4 mg PO DAILY 09/17/20 09/17/20 History Umeclidinium [place] [Incruse 62.5 mcg IH DAILY 09/17/20 09/17/20 History Ellipta] Venlafaxine HCl [Effexor XR 75mg 75 mg PO DAILY 09/17/20 09/17/20 History capsule] Acetaminophen [Acetaminophen 325mg 325 mg PO DAILY 09/18/20 09/18/20 History tab] Oxycodone HCl [Oxycodone 5mg tab 5 mg PO Q4-6H PRN 09/18/20 09/18/20 History (IR)] Oxycodone HCl/Acetaminophen 1 tab PO DAILY PRN 09/18/20 09/18/20 History [Percocet 10-325 mg Tablet] Height: 1.83 m Weight: 52.163 kg Laboratory Results:: Laboratory Results - last 24 hr 09/19/20 20:30: Vancomycin Trough < 5.0 L Medical History: Reports:: Chronic Obstructive Pulmonary Disease (COPD), Depression, Gastroesophageal Reflux Disease(GERD), Hypertension Denies:: Diabetes Mellitus Type 2 Assessment and Plan (1) Pneumonia due to COVID-19 virus Status: Acute Category: Medical Code(s): U07.1 - COVID-19; J12.89 - Other viral pneumonia (2) COVID-19 Status: Acute Category: Medical Code(s): U07.1 - COVID-19 (3) Body mass index [BMI] 19.9 or less, adult Status: Chronic Category: Medical Code(s): Z68.1 - Body mass index [BMI] 19.9 or less, adult (4) Acute respiratory failure with hypoxia Status: Acute Category: Medical Code(s): J96.01 - Acute respiratory failure with hypoxia (5) Hypertension Status: Acute Category: Medical Code(s): I10 - Essential (primary) hypertension (6) Status post colon resection Status: Chronic Category: Surgical Code(s): Z90.49 - Acquired absence of other specified parts of digestive tract (7) Colostomy in place Status: Chronic Category: Medical Code(s): Z93.3 - Colostomy status (8) Hypokalemia Status: Acute Category: Medical Code(s): E87.6 - Hypokalemia (9) Tobacco use disorder Status: Acute Category: Medical Code(s): F17.200 - Nicotine dependence, unspecified, uncomplicated (10) COPD (chronic obstructive pulmonary disease) Status: Acute Category: Medical Code(s): J44.9 - Chronic obstructive pulmonary disease, unspecified (11) Fall Status: Acute Category: Medical Code(s): W19.XXXA - Unspecified fall, initial encounter (12) Sacral decubitus ulcer Status: Acute Category: Medical Code(s): L89.159 - Pressure ulcer of sacral region, unspecified stage (13) Chronic back pain Status: Acute Category: Medical Code(s): M54.9 - Dorsalgia, unspecified; G89.29 - Other chronic pain - Assessment and plan all Dx Assessment and Plan for all problems:: BASED ON PATIENT FACTORS AND VANCOMYCIN TROUGH LEVEL OF <5, RECOMMEND INCREASING DOSE AND CHANGING DOSING INTERVAL TO Q12H. PHARMACY WILL OBTAIN TROUGH LEVEL 09/21/20 @ 1000 AND WILL ADJUST DOSE APPROPRIATE AT THAT POINT. -SAMUEL BARTHOLOMEW PHARMD
--- NOTE | 2020-09-20 14:17 | DIET.NUTRFU ---
Pt at risk malnutrition and with stage II PA. PO intakes 50% + protein supplement TID. Additional protein supplement added to diet order. Weight has remained stable. Tolerating low fiber/residue diet. Colostomy output moderate and normal consistency. Continuing to monitor.
--- NOTE | 2020-09-20 15:12 | HMH.PTWOUND ---
Rehab Inpt Wound Evaluation Rehab IP Wound Evaluation Start: 09/20/20 13:54 Freq: ONCE Status: Active Protocol: Document 09/20/20 15:09 PHOLUIS ANGEL (Rec: 09/20/20 15:12 PHOROMAR [id number]) Rehab PT Wound Assessment Subjective Subjective 60 yowm adm with COVID hypoxia . Sacral decubitus on admission. Wound Sacrum Wound Type Pressure Ulcer Is This a Chronic Wound Yes Wound Staging Stage II Query Text:Stage I - Unbroken, red skin, no blanching. Stage II - Skin broken, superficial skin loss involving epidermis alone or also dermis. Partial loss of skin layers. Stage III - Pressure area involves epidermis, dermis and subcutaneous tissue, full thickness skin loss. Stage IV - Pressure area involves epidermis, subcutaneous tissue, bone and other supportive tissue. Full thickness skin loss with extensive destruction of underlying tissue and structures. Wound Length (cm) 5.0 Wound Width (cm) 3.0 Wound Bed Appearance Graton Wound Margins Description Macerated Surrounding Tissue Appearance Bright Red Wound Drainage Description Serosanguineous Drainage Amount Moderate Primary Dressing Composite Comment optifoam gentle sacrum Wound Debridement Amount of Tissue None Removed Dressing Change Patient Tolerance Tolerated Well Plan/Recommendation Comment NSG to continue dressing changes as needed, no excisional sharp debridement required at this time. Recommend pt continue active pressure relief from this area as much as possible. Eval Complexity Eval Charge Codes 47705 - Moderate Complexity PHYSICIAN CERTIFICATION: I certify the specified therapy services for Irineo Sawant are required, authorized, and reviewed every 30 days.
--- NOTE | 2020-09-20 15:15 | PC.NURSE ---
Patient is resting comfortably in bed. Pain medication given to ease discomfort that patient states is chronic for him. Neurologically patient is intact, alert and oriented x 4. Patient has been pleasant throughout shift. GI patient has eaten roughly 50% of meals. Ostomy present, stool is semiformed and brown. Patients appears to be severely thin with prominent bone protrusion. No n/v/d. Patients ostomy supplies are with his brother who patient states works in [place] so he will not be able to get a change for his ostomy. patient has used urinal. Urine is yellow, clear. Patient got a bath today and did much of his care independently. Respiratory: Patient has done well using Incentive spirometer throughout shift. Oxygen is currently sat to 2l, which is what patient wears at home. It was noted that when patient lays on his side his oxygen level on 2l will be between 98-100%. Patient skin has poor turgor. DTI noted on his coccyx as mentioned in am biophysical. Drainage on dressing noted so dressing was removed. Contacted to request a woundcare consult, at which time pt recommended that we use a large optifoam silicone border sacral dressing. Additionally, it is recommended that patient uses antibacterial silver cut down to approximately the same circular size as the wound and then cover that with the sacral dressing. Dressing changed. Patient is highly encouraged to rotate on his side. Recommended that patient be a q2 hour turn while in the hospital to enable wound healing. Patient has been afebrile and had bouts of hypertension. Current bp is 142/87, hr 77, rr 22 and o2 sat is 97 on 2l. Patient is sleeping comfortably. Will continue to monitor.
--- NOTE | 2020-09-20 17:31 | PC.NURSE ---
While eating dinner patient was sitting at the side of the bed and became extremely short of air. O2 saturation read 72%. Increased patients oxygen from 2 to 4liters. Patient refused to sit back until he finished his green beans. Patient has since recovered but it took roughly 5 minutes to get his oxygenation back to within range. Will continue to monitor.
[2020-09-21] VITALS (10 sets, daily range): BP systolic 148–173; BP diastolic 85–99; PULSE 69–93; RESP 16–20; TEMP 36.5–36.7; O2SAT 87–98; BMI 14.2
--- NOTE | 2020-09-21 05:53 | PC.NURSE ---
Pt is A&Ox4 and has ambulated to the side of the bed 4x this shift with SBA and tolerated fair d/t desat to low 80s. Recovery time back to baseline is 5-15 minutes. Pt reports fatigue with these exertions but denies any dyspnea or SOA. Diminished lung sounds, scattered rhonchi on auscultation. Pt has had a weak, dry cough at times. At the beginning of the shift, pt was on 4LPM NC. Was able to wean pt down to 3LPM and maintained O2 for most of the shift, and at 5am pt was weaned down to 2LPM. However, had to increased back to 3LMP d/t pt sustaining sat <88%. Pt was turned by staff or turned self q2. Dressing to coccxy area in place, not visualized d/t packing and dressing placed by previous shift. +1, non-pitting edema edema to bilat feet. 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 Colostomy in place to LLQ of ABD, draining thin, light brown stool. Pt voids in urinal and has had an output of 1450ml. IS was completed several rounds and best @ 1000. Lovenox fort VTE. Call light within reach and pt has called out appropriately for assistance.
[2020-09-21 09:54] LABS: Vancomycin,Trough 15.1 ug/mL (5.0-10.0)
--- NOTE | 2020-09-21 10:05 | HMH.PHACONS ---
- Pharmacy Consult Date: 09/21/20 Time: 10:05 Referring provider: DR. DAMICO Reason for Consult:: VANCOMYCIN TROUGH LEVEL Allergies and ADEs:: Allergies Allergy/AdvReac Type Severity Reaction Status Date / Time No Known Allergies Allergy Verified 09/17/20 11:08 Home Medications:: Home Medications Medication Instructions Recorded Confirmed Type Albuterol Sulfate [Albuterol 2 puffs IH Q4HP PRN 09/17/20 09/17/20 History Sulfate Hfa] Amlodipine Besylate 5 mg PO DAILY 09/17/20 09/17/20 History Docusate Sodium [Docusate Sodium 100 mg PO DAILY 09/17/20 09/17/20 History 100mg Cap] Metoprolol Tartrate [Lopressor 12.5 mg PO BID 09/17/20 09/17/20 History 25mg tablet] Pantoprazole Sodium 40 mg PO DAILY 09/17/20 09/17/20 History Quetiapine Fumarate [Seroquel] 25 mg PO HS 09/17/20 09/17/20 History Tamsulosin HCl 0.4 mg PO DAILY 09/17/20 09/17/20 History Umeclidinium [place] [Incruse 62.5 mcg IH DAILY 09/17/20 09/17/20 History Ellipta] Venlafaxine HCl [Effexor XR 75mg 75 mg PO DAILY 09/17/20 09/17/20 History capsule] Acetaminophen [Acetaminophen 325mg 325 mg PO DAILY 09/18/20 09/18/20 History tab] Oxycodone HCl [Oxycodone 5mg tab 5 mg PO Q4-6H PRN 09/18/20 09/18/20 History (IR)] Oxycodone HCl/Acetaminophen 1 tab PO DAILY PRN 09/18/20 09/18/20 History [Percocet 10-325 mg Tablet] Height: 1.83 m Weight: 47.627 kg Laboratory Results:: Laboratory Results - last 24 hr 09/21/20 09:19: Vancomycin Trough 15.1 H Medical History: Reports:: Chronic Obstructive Pulmonary Disease (COPD), Depression, Gastroesophageal Reflux Disease(GERD), Hypertension Denies:: Diabetes Mellitus Type 2 Assessment and Plan (1) Pneumonia due to COVID-19 virus Status: Acute Category: Medical Code(s): U07.1 - COVID-19; J12.89 - Other viral pneumonia (2) COVID-19 Status: Acute Category: Medical Code(s): U07.1 - COVID-19 (3) Body mass index [BMI] 19.9 or less, adult Status: Chronic Category: Medical Code(s): Z68.1 - Body mass index [BMI] 19.9 or less, adult (4) Acute respiratory failure with hypoxia Status: Acute Category: Medical Code(s): J96.01 - Acute respiratory failure with hypoxia (5) Hypertension Status: Acute Category: Medical Code(s): I10 - Essential (primary) hypertension (6) Status post colon resection Status: Chronic Category: Surgical Code(s): Z90.49 - Acquired absence of other specified parts of digestive tract (7) Colostomy in place Status: Chronic Category: Medical Code(s): Z93.3 - Colostomy status (8) Hypokalemia Status: Acute Category: Medical Code(s): E87.6 - Hypokalemia (9) Tobacco use disorder Status: Acute Category: Medical Code(s): F17.200 - Nicotine dependence, unspecified, uncomplicated (10) COPD (chronic obstructive pulmonary disease) Status: Acute Category: Medical Code(s): J44.9 - Chronic obstructive pulmonary disease, unspecified (11) Fall Status: Acute Category: Medical Code(s): W19.XXXA - Unspecified fall, initial encounter (12) Sacral decubitus ulcer Status: Acute Category: Medical Code(s): L89.159 - Pressure ulcer of sacral region, unspecified stage (13) Chronic back pain Status: Acute Category: Medical Code(s): M54.9 - Dorsalgia, unspecified; G89.29 - Other chronic pain - Assessment and plan all Dx Assessment and Plan for all problems:: BASED ON PATIENT'S TROUGH LEVEL OF 15.1 MCG/ML, RECOMMEND CONTINUING WITH VANCOMYCIN 1250 MG Q12H AT THIS TIME. PHARMACY WILL FOLLOW DAILY AND ADJUST APPROPRIATE.
--- NOTE | 2020-09-21 10:55 | HMH.ACPN2 ---
Internal Medicine - PN: Subj *Date: 09/21/20 *Time: 08:12 Interval history: States that he feels good and wants to go home. He feels he can lay at home just the same as he is laying here . Overall he has been stable but has been requiring a bit more oxygen. He is currently on 3 L nasal cannula and satting at 88%. Sats drop to about 80% with any activity. Exam Vital signs and Labs for Last 24 Hours: Temp Pulse Resp BP Pulse Ox 97.9 F 89 20 148/85 H 94 L 09/21/20 07:59 09/21/20 07:59 09/21/20 07:59 09/21/20 07:59 09/21/20 08:00 Laboratory Results - last 24 hr 09/21/20 09:19: Vancomycin Trough 15.1 H I & O for Last 24 hours: Intake & Output 09/18/20 09/19/20 09/20/20 09/21/20 11:59 11:59 11:59 11:59 Intake Total 480 / 480 1390 / 1390 920 / 920 2140 / 2140 Output Total 1700 / 1700 3550 / 3550 2250 / 2250 1999 / 1999 Balance -1220 / -1220 -2160 / -2160 -1330 / -1330 140 / 140 Weight 114 lb 10.246 oz 119 lb 8.589 oz 115 lb 105 lb Narrative: He is alert and oriented. He appears comfortable. Breath sounds are generally diminished. No rales or wheezes. Heart is regular. Abdomen benign. Extremities with trace pedal edema. Assessment and Plan (1) Pneumonia due to COVID-19 virus Status: Acute Category: Medical Code(s): U07.1 - COVID-19; J12.89 - Other viral pneumonia (2) COVID-19 Status: Acute Category: Medical Code(s): U07.1 - COVID-19 (3) Body mass index [BMI] 19.9 or less, adult Status: Chronic Category: Medical Code(s): Z68.1 - Body mass index [BMI] 19.9 or less, adult (4) Acute respiratory failure with hypoxia Status: Acute Category: Medical Code(s): J96.01 - Acute respiratory failure with hypoxia (5) Hypertension Status: Acute Category: Medical Code(s): I10 - Essential (primary) hypertension (6) Status post colon resection Status: Chronic Category: Surgical Code(s): Z90.49 - Acquired absence of other specified parts of digestive tract (7) Colostomy in place Status: Chronic Category: Medical Code(s): Z93.3 - Colostomy status (8) Hypokalemia Status: Acute Category: Medical Code(s): E87.6 - Hypokalemia (9) Tobacco use disorder Status: Acute Category: Medical Code(s): F17.200 - Nicotine dependence, unspecified, uncomplicated (10) COPD (chronic obstructive pulmonary disease) Status: Acute Category: Medical Code(s): J44.9 - Chronic obstructive pulmonary disease, unspecified (11) Fall Status: Acute Category: Medical Code(s): W19.XXXA - Unspecified fall, initial encounter (12) Sacral decubitus ulcer Status: Acute Category: Medical Code(s): L89.159 - Pressure ulcer of sacral region, unspecified stage (13) Chronic back pain Status: Acute Category: Medical Code(s): M54.9 - Dorsalgia, unspecified; G89.29 - Other chronic pain - Assessment and plan all Dx Assessment and Plan for all problems:: Blood pressure is improved. As noted he is requiring a bit more oxygen today to maintain his sats. We will continue to monitor. He is very insistent on going home but I have convinced him to stay another day and receive his last dose of remdesivir.
--- NOTE | 2020-09-21 19:39 | PC.NURSE ---
Alert and oriented and able to make needs known. RR even and labored at this time. Pt is resting. Has remained on 3 L NC. Prn Tylenol given per dec. CB in reach. Did cleanse and change whole colostomy this shift. VSS. NO cough/fever at this time.
--- NOTE | 2020-09-21 19:43 | PC.NURSE ---
This nurse did change dsg to coccyx this shift, have encouraged turning q 2 hrs and use of incentive spirometer. Remains of Lovenox for vte.
[2020-09-22] VITALS (7 sets, daily range): BP systolic 140–171; BP diastolic 73–98; PULSE 64–95; RESP 16–22; TEMP 36.4–36.6; O2SAT 88–99
--- NOTE | 2020-09-22 03:23 | PC.NURSE ---
Pt A&OX4 diminished noted in lungs. pt remains on 3L O2 with O2 sats 93-98 %. pt c/o back and hip rating 05/13 was medicated per DEC. pt voids per urinal independently. pt has rested at intervals t/o shift.
[2020-09-22 05:16] LABS: Basophils % 0.1 % (0.1-2.0); Eosinophils % 0.2 % (0.1-12.0); Hemoglobin 10.9 g/dL (14.1-18.0); Lymphocytes % 12.2 % (10-50); Mean Corpuscular HGB Conc 32.9 g/dL (31.8-35.4); Mean Corpuscular Hemoglobin 28.4 pg (27.0-31.2); Mean Corpuscular Volume 86.3 fl (80-94); Mean Platelet Volume 7.9 fl (7.4-10.4); Monocytes # 0.3 K/mm3 (0.1-1.0); Monocytes % 3.9 % (1.7-9.3); Neutrophils % 83.7 % (37.0-80.0); Platelet Count 309 K/mm3 (142-424); Red Blood Count 3.83 M/mm3 (4.60-6.20); Red Cell Distribution Width 15.7 % (11.5-17.5); White Blood Count 8.4 K/mm3 (4.8-10.8)
[2020-09-22 05:27] LABS: Chloride 104 mmol/L (98-107); Sodium 136 mmol/L (136-145)
[2020-09-22 05:28] LABS: Potassium 3.8 mmoL/L (3.5-5.1)
[2020-09-22 05:30] LABS: Blood Urea Nitrogen 25 mg/dl (9-20); Creatinine Clearance Estimated 107 mL/min (50-200); Estimated Glomerular Filt Rate 170 ml/min (>60); GFR (African American) 206 ML/MIN (>60)
[2020-09-22 05:31] LABS: Anion Gap 6.8 mEq/L (5-15); Calcium 8.5 mg/dl (8.4-10.2); Carbon Dioxide 29 mmol/L (22.0-30.0); Glucose 95 mg/dl (74-100)
--- NOTE | 2020-09-22 11:48 | HMH.ACPN ---
Internal Medicine - PN: Subj *Date: 09/22/20 *Time: 11:48 Exam Vital signs and Labs for Last 24 Hours: Temp Pulse Resp BP Pulse Ox 97.7 F 95 H 19 142/97 H 97 09/22/20 07:44 09/22/20 07:44 09/22/20 07:44 09/22/20 07:44 09/22/20 08:00 Laboratory Results - last 24 hr 09/22/20 04:46: WBC 8.4, RBC 3.83 L, Hgb 10.9 L, Hct 33.0 L, MCV 86.3, MCH 28.4, MCHC 32.9, RDW 15.7, Plt Count 309, MPV 7.9, Neut % (Auto) 83.7 H, Lymph % (Auto) 12.2, [place] % (Auto) 3.9, Eos % (Auto) 0.2, Baso % (Auto) 0.1, Neut # (Auto) 7.0, Lymph # (Auto) 1.0, [place] # (Auto) 0.3, Eos # (Auto) 0.0, Baso # (Auto) 0.0 09/22/20 04:46: Sodium 136, Potassium 3.8, Chloride 104, Carbon Dioxide 29, Anion Gap 6.8, BUN 25 H, Creatinine 0.50 L, Estimated Creat Clear 107, Estimated GFR 170, Est GFR ( Amer) 206, Glucose 95, Calcium 8.5 I & O for Last 24 hours: Intake & Output 09/19/20 09/20/20 09/21/20 09/22/20 23:59 23:59 23:59 23:59 Intake Total 1040 / 1040 1220 / 1220 1760 / 1760 710 / 710 Output Total 2750 / 2750 2600 / 2600 1650 / 1650 1200 / 1200 Balance -1710 / -1710 -1380 / -1380 110 / 110 -490 / -490 Weight 54.221 kg 52.163 kg 47.627 kg Assessment and Plan (1) Pneumonia due to COVID-19 virus Status: Acute Category: Medical Code(s): U07.1 - COVID-19; J12.89 - Other viral pneumonia (2) COVID-19 Status: Acute Category: Medical Code(s): U07.1 - COVID-19 (3) Body mass index [BMI] 19.9 or less, adult Status: Chronic Category: Medical Code(s): Z68.1 - Body mass index [BMI] 19.9 or less, adult (4) Acute respiratory failure with hypoxia Status: Acute Category: Medical Code(s): J96.01 - Acute respiratory failure with hypoxia (5) Hypertension Status: Acute Category: Medical Code(s): I10 - Essential (primary) hypertension (6) Status post colon resection Status: Chronic Category: Surgical Code(s): Z90.49 - Acquired absence of other specified parts of digestive tract (7) Colostomy in place Status: Chronic Category: Medical Code(s): Z93.3 - Colostomy status (8) Hypokalemia Status: Acute Category: Medical Code(s): E87.6 - Hypokalemia (9) Tobacco use disorder Status: Acute Category: Medical Code(s): F17.200 - Nicotine dependence, unspecified, uncomplicated (10) COPD (chronic obstructive pulmonary disease) Status: Acute Category: Medical Code(s): J44.9 - Chronic obstructive pulmonary disease, unspecified (11) Fall Status: Acute Category: Medical Code(s): W19.XXXA - Unspecified fall, initial encounter (12) Sacral decubitus ulcer Status: Acute Category: Medical Code(s): L89.159 - Pressure ulcer of sacral region, unspecified stage (13) Chronic back pain Status: Acute Category: Medical Code(s): M54.9 - Dorsalgia, unspecified; G89.29 - Other chronic pain The patient's infection will respond to the chosen ABx?: Yes Is the patient receiving the right drug, dose, and route?: Yes Could a more targeted ABx be ordered?: No (WBC WNL, AFEBRILE, NO SPUTUM CX.)
--- NOTE | 2020-09-22 12:54 | HMH.ACPN2 ---
Internal Medicine - PN: Subj *Date: 09/22/20 *Time: 12:54 Interval history: On rounds at 0800 this morning he was quite adamant about going home. At that time his O2 sats were in the mid to upper 80s on 3 L of nasal cannula and I advised against leaving. Again he was quite insistent agreed to recheck him at noon to see if his sats had improved. Indeed at the present time his O2 sats are in the mid 90s. He still drops his sats into the upper 80s with the slightest activity. He states he has [id number] assistance at home from a [id number]-gpn who is a CONFIGURATION MANAGEMENT ANALYST. Exam Vital signs and Labs for Last 24 Hours: Temp Pulse Resp BP Pulse Ox 97.9 F 76 18 171/98 H 96 09/22/20 12:00 09/22/20 12:00 09/22/20 12:00 09/22/20 12:00 09/22/20 12:00 Laboratory Results - last 24 hr 09/22/20 04:46: WBC 8.4, RBC 3.83 L, Hgb 10.9 L, Hct 33.0 L, MCV 86.3, MCH 28.4, MCHC 32.9, RDW 15.7, Plt Count 309, MPV 7.9, Neut % (Auto) 83.7 H, Lymph % (Auto) 12.2, [place] % (Auto) 3.9, Eos % (Auto) 0.2, Baso % (Auto) 0.1, Neut # (Auto) 7.0, Lymph # (Auto) 1.0, [place] # (Auto) 0.3, Eos # (Auto) 0.0, Baso # (Auto) 0.0 09/22/20 04:46: Sodium 136, Potassium 3.8, Chloride 104, Carbon Dioxide 29, Anion Gap 6.8, BUN 25 H, Creatinine 0.50 L, Estimated Creat Clear 107, Estimated GFR 170, Est GFR ( Amer) 206, Glucose 95, Calcium 8.5 I & O for Last 24 hours: Intake & Output 09/20/20 09/21/20 09/22/20 09/23/20 11:59 11:59 11:59 11:59 Intake Total 920 / 920 2140 / 2500 1430 / 1430 360 / 360 Output Total 2250 / 2250 1999 Balance -1330 / -1330 140 / 500 -620 / -620 360 / 360 Weight 115 lb 105 lb Narrative: He appears in no respiratory distress. Breath sounds are diminished bilaterally. No rales or wheezes. Abdomen is soft and nondistended. Colostomy is functioning. Extremities show trace pedal edema. Potassium has improved. White count is normal. Assessment and Plan (1) Pneumonia due to COVID-19 virus Status: Acute Category: Medical Code(s): U07.1 - COVID-19; J12.89 - Other viral pneumonia (2) COVID-19 Status: Acute Category: Medical Code(s): U07.1 - COVID-19 (3) Body mass index [BMI] 19.9 or less, adult Status: Chronic Category: Medical Code(s): Z68.1 - Body mass index [BMI] 19.9 or less, adult (4) Acute respiratory failure with hypoxia Status: Acute Category: Medical Code(s): J96.01 - Acute respiratory failure with hypoxia (5) Hypertension Status: Acute Category: Medical Code(s): I10 - Essential (primary) hypertension (6) Status post colon resection Status: Chronic Category: Surgical Code(s): Z90.49 - Acquired absence of other specified parts of digestive tract (7) Colostomy in place Status: Chronic Category: Medical Code(s): Z93.3 - Colostomy status (8) Hypokalemia Status: Acute Category: Medical Code(s): E87.6 - Hypokalemia (9) Tobacco use disorder Status: Acute Category: Medical Code(s): F17.200 - Nicotine dependence, unspecified, uncomplicated (10) COPD (chronic obstructive pulmonary disease) Status: Acute Category: Medical Code(s): J44.9 - Chronic obstructive pulmonary disease, unspecified (11) Fall Status: Acute Category: Medical Code(s): W19.XXXA - Unspecified fall, initial encounter (12) Sacral decubitus ulcer Status: Acute Category: Medical Code(s): L89.159 - Pressure ulcer of sacral region, unspecified stage (13) Chronic back pain Status: Acute Category: Medical Code(s): M54.9 - Dorsalgia, unspecified; G89.29 - Other chronic pain - Assessment and plan all Dx Assessment and Plan for all problems:: He is clinically stable but still concerning that his O2 sats readily drop with slightest exertion. He still insists that he would be fine at home but after some negotiation has agreed to stay another day.
--- NOTE | 2020-09-22 16:45 | PC.NURSE ---
PT HAS REQUESTED TO GO HOME MULTIPLE TIMES THIS SHIFT, HE WAS CONVINCED THAT IT WAS IN HIS BEST INTEREST TO STAY DUE TO HIS INABILITY TO MAINTAIN O2 ABOVE 88% ON RA, HE HAS REQUESTED PAIN MEDICATION AT REGULAR INTERVALS THIS SHIFT, HE USED THE URINAL INDEPENDENTLY AT BEDSIDE, HE HAS TOLERATED ORAL INTAKE WELL AND HAS HAD PROTEIN SHAKE WITH MEALS, PT CAN EMPTY COLOSTOMY INDEPENDENTLY AND IS ABLE TO MAKE NEEDS KNOWN TO STAFF. VSS. WILL CONTINUE TO MONITOR.
[2020-09-23] VITALS: BP 166/99; PULSE 67; RESP 19; TEMP 36.6; O2SAT 98
[2020-09-23 03:47] VITALS: BP 160/95; PULSE 80; RESP 20; TEMP 36.7; O2SAT 98
[2020-09-23 04:57] VITALS: BMI 13.6
--- NOTE | 2020-09-23 05:12 | PC.NURSE ---
Pt is A&O x4 and has has rested for short periods of time throughout the night. Pt had complaints of pain in the lower back due to stage 4 PI. He stated that is was improved from yesterday with 2mg morphine q4. Lung sounds are diminished and wheezy. Sats have been in upper 90s on 3 L NC. Abd is soft and nontender, pt is able to empty colostomy independently. Both feet have +1 pitting edema that pt states is much improved. UOP has been adequate. VSS. call light in reach. no concerns at this time.
[2020-09-23 08:00] VITALS: BP 169/107; PULSE 82; RESP 19; TEMP 36.4; O2SAT 87
--- NOTE | 2020-09-23 09:28 | HMH.ACPN2 ---
<Shima Osei - Last Filed: 09/23/20 09:32> Internal Medicine - PN: Subj *Date: 09/23/20 *Time: 09:32 Interval history: Pt is sitting up in bed without complaint. His cough has become productive of brownish sputum overnight. His sats have been better maintained, however, he continues to desat into the low 80's with any activity, including repositioning in bed. Exam Vital signs and Labs for Last 24 Hours: Temp Pulse Resp BP Pulse Ox 97.6 F 82 19 169/107 H 87 L 09/23/20 08:00 09/23/20 08:00 09/23/20 08:00 09/23/20 08:00 09/23/20 08:00 I & O for Last 24 hours: Intake & Output 09/20/20 09/21/20 09/22/20 09/23/20 11:59 11:59 11:59 11:59 Intake Total 920 / 920 2140 / 2500 1650 / 1650 1320 / 1320 Output Total 2250 / 2250 1999 / 1999 2370 / 2370 Balance -1330 / -1330 140 / 500 -400 / -400 -1050 / -1050 Weight 115 lb 105 lb 101 lb - Constitutional no acute distress, cachectic - *Routine HEENT Exam Head: Present: normocephalic, atraumatic ENT: Present: mucous membranes moist - *Routine Respiratory Exam Absent: respiratory distress Comments: generally diminished with rhonchi and wheezes throughout - *Routine Cardiovascular Exam Present: RRR - *Routine Abdominal Exam Present: soft, normoactive bowel sounds, ostomy. Absent: tenderness, distended - *Routine Extremities Exam Present: full ROM, pulses intact. Absent: edema, calf tenderness - *Routine Neurological Exam Present: alert, oriented X3, moving all extremities, normal speech Assessment and Plan (1) Pneumonia due to COVID-19 virus Status: Acute Category: Medical Code(s): U07.1 - COVID-19; J12.89 - Other viral pneumonia (2) COVID-19 Status: Acute Category: Medical Code(s): U07.1 - COVID-19 (3) Body mass index [BMI] 19.9 or less, adult Status: Chronic Category: Medical Code(s): Z68.1 - Body mass index [BMI] 19.9 or less, adult (4) Acute respiratory failure with hypoxia Status: Acute Category: Medical Code(s): J96.01 - Acute respiratory failure with hypoxia (5) Hypertension Status: Acute Category: Medical Code(s): I10 - Essential (primary) hypertension (6) Status post colon resection Status: Chronic Category: Surgical Code(s): Z90.49 - Acquired absence of other specified parts of digestive tract (7) Colostomy in place Status: Chronic Category: Medical Code(s): Z93.3 - Colostomy status (8) Hypokalemia Status: Acute Category: Medical Code(s): E87.6 - Hypokalemia (9) Tobacco use disorder Status: Acute Category: Medical Code(s): F17.200 - Nicotine dependence, unspecified, uncomplicated (10) COPD (chronic obstructive pulmonary disease) Status: Acute Category: Medical Code(s): J44.9 - Chronic obstructive pulmonary disease, unspecified (11) Fall Status: Acute Category: Medical Code(s): W19.XXXA - Unspecified fall, initial encounter (12) Sacral decubitus ulcer Status: Acute Category: Medical Code(s): L89.159 - Pressure ulcer of sacral region, unspecified stage (13) Chronic back pain Status: Acute Category: Medical Code(s): M54.9 - Dorsalgia, unspecified; G89.29 - Other chronic pain - Assessment and plan all Dx Assessment and Plan for all problems:: Per Dr. Thompson. <Timmy Thompson - Last Filed: 09/23/20 09:45> Internal Medicine - PN: Subj *Date: 09/23/20 *Time: 09:42 Exam Vital signs and Labs for Last 24 Hours: Temp Pulse Resp BP Pulse Ox 97.6 F 82 19 169/107 H 87 L 09/23/20 08:00 09/23/20 08:00 09/23/20 08:00 09/23/20 08:00 09/23/20 08:00 I & O for Last 24 hours: Intake & Output 09/20/20 09/21/20 09/22/20 09/23/20 11:59 11:59 11:59 11:59 Intake Total 920 / 920 2140 / 2500 1650 / 1650 1320 / 1320 Output Total 2250 / 2250 1999 / 1999 2370 / 2370 Balance -1330 / -1330 140 / 500 -400 / -400 -1050 / -1050 Weight 115 lb 105 lb 101 lb Assessment and Plan (1)
--- NOTE | 2020-09-23 09:33 | SW/DCPLANNER ---
PATIENT IS DISCHARGING HOME TODAY AND WAS SET UP ON WEDNESDAY FOR HOME AND A PORTABLE WAS BROUGHT TO THE HOSPITAL... I HAVE CALLED RENATO THIS MORNING FOR THE CONCENTRATOR TO BE DELIVERED TO HIS HOME.. PATIENT WAS ORIGINALLY SET UP WITH [facility] AND I HAVE NOTIFIED THEM TODAY WITH NEW ORDERS FOR HOME HEALTH TO START POST DISCHARGE FROM [facility]... PATIENT WILL NEED TO FOLLOW UP WITH HIS PRIMARY CARE DOCTOR POST THIS ACUTE CARE STAY...
--- NOTE | 2020-09-23 12:02 | HMH.DCSUM ---
General - General Admission date:: 09/17/20 <Timmy Thompson - 10/06/20 22:16> 09/17/20 <Edith Rodriguez - 09/23/20 12:11> Discharge date: 09/23/20 <JenniferEdith - 09/23/20 12:11> HPI HPI: Mr. Sawant is a 60-year-old male with history of tobacco abuse and hypertension, COPD and recent colostomy secondary to bowel perforation and discharged from the hospital on 09/07/2020 who presented to [facility] complaining of shortness of breath. He states the dyspnea started about 3 days ago and has progressed. He also describes a cough which is mostly nonproductive. He was recently started on inhalers since diagnosis of COPD and has been using it with minimal relief. When he went outside this morning to smoke he had worsening shortness of breath. He denied chest pain, fever/chills and other respiratory symptoms. On arrival to the emergency room his saturations on room air was around 80%. He did have some conversational dyspnea With evaluation in the emergency room he was found to have a potassium of 2.4 and was given IV potassium. O2 sats did improve with nasal O2. The concern was for hospital-acquired pneumonia and he was started on vancomycin and cefepime for MRSA/Pseudomonas coverage. CBC revealed a white blood cell count of 10,800 with a hemoglobin of 10.9 hematocrit of 33.1. Blood chemistries did reveal the potassium of 2.4 with a sodium of 142. BUN was 22 and a creatinine 0.9. Magnesium was normal at 1.7. Troponin I was 0.01x2. BNP was 1080. Covid PCR was positive as were IgG and IgM. He had a CTA of the chest to rule out pulmonary embolism due to his recent surgery which revealed no evidence of pulmonary emboli, aortic aneurysm or dissection. It did reveal diffuse bilateral pneumonia with apical sparing with a crazy paving pattern often seen with COVID-19 pneumonia superimposed upon COPD. Also noted were a large consolidation in the right lower lobe consistent with pneumonia and no effusions. He also was noted to have abdominal ascites with borderline splenomegaly and a suspected resolving subcapsular hematoma of the liver posteriorly as well as patchy enhancement of the cortex of both kidneys which may be seen with pyelonephritis or hypotension. Patient was admitted for further evaluation and treatment to the Covid unit. At the time of this exam patient states he was breathing fine and denied chest pain. He was thirsty and requested Pop. <Edith Rodriguez - 09/23/20 12:11> Hospital Course Hospital Course: The patient was placed on routine Covid protocol. Vancomycin and cefepime were added for possible hospital-acquired pneumonia and he was started on potassium for hypokalemia. The patient did have a fall during the first night and had an x-ray of his hip which showed no acute fracture. He remained stable but required consistent oxygen. He was requesting pain medication which he took at home. He was started on a low-dose of morphine for chronic back pain. His oxygen would drop into the 80s on room air but recovered easily with 2-3 liters of nasal oxygen. His blood pressure was not well controlled, therefore his dose of Norvasc was increased. The patient's blood pressure improved and he felt well other than his oxygen dropping on room air and with any movement. The patient was very insistent about going home. His sats did improve into the mid 90s but dropped into the 80s with the slightest activity. He stated he had [id number] assistance from his [id number]-[id number] who is a [employer] W[employer]END[employer]IC. He agreed to stay 1 more day to get his total dose of remdesivir. His sats were better maintained by 09/23/2020, although he still continued to desat into the low 80s with any activity. Dr. Thompson agreed to discharge the patient as he had [id number]-kcexc care at home. He agreed to obtain a pulse oximeter to monitor his oxygen level and home oxygen was arranged through [facility]. He will also have home health
== END 2020-09-23 11:15 | disposition home health service (06) | DRG 177 ==
LOC: ER 13:48 → 2ND 14:32 → ICU 15:12
PROVIDERS: Nurse Practitioner Family; Admitting Provider Family Medicine; Emergency Provider Emergency Medicine; Visit Provider Family Medicine
DX: U07.1 COVID-19 (principal); J12.89 Other viral pneumonia; J96.01 Acute respiratory failure with hypoxia; E43 Unspecified severe protein-calorie malnutrition; Z68.1 Body mass index [BMI] 19.9 or less, adult; R64 Cachexia; Z72.0 Tobacco use; L89.159 Pressure ulcer of sacral region, unspecified stage; J44.9 Chronic obstructive pulmonary disease, unspecified; E87.6 Hypokalemia; G89.29 Other chronic pain; Z90.49 Acquired absence of other specified parts of digestive tract; Z93.3 Colostomy status; Z79.51 Long term (current) use of inhaled steroids; Z79.899 Other long term (current) drug therapy
CPT/HCPCS: 36415; 71045; 71275; 73521; 80048; 80053; 80202; 83735; 83880; 84484; 85007; 85025; 86328; 87581; 87633; 87798; 93005; 94640; 94761; 96365; 96367; 99285; J3370; Q9967

== ENCOUNTER 2020-10-01 12:59 | Inpatient (IN) | payer MEDICAID, SELFPAY ==
[2020-10-01] VITALS (14 sets, daily range): BP systolic 141–205; BP diastolic 80–127; PULSE 82–129; RESP 18–28; TEMP 36.5–36.7; O2SAT 78–99; BMI 14.2; BMI 14.3
--- NOTE | 2020-10-01 13:04 | XR_ITS ---
PROCEDURE: XR CHEST PORTABLE CLINICAL HISTORY: sob COMPARISON: CR XR CHEST PORTABLE from 09/17/[address] ANGIO CHEST from 09/17/2020 FINDINGS: The cardiomediastinal silhouette and pulmonary vascularity are within normal limits. Bilateral perihilar and lower lobe ill-defined opacities are again seen with some streaky linear opacities at the left base likely representing postinflammatory scarring and/or pulmonary fibrosis. The bilateral lower lobe infiltrates and/or scarring are stable however there now is infiltrate involving the right upper lobe primarily anterior segment. There monitor lines overlying the chest. IMPRESSION: Chronic lung changes with probable pulmonary fibrosis in the lower lobes however there appear to be superimposed pneumonic infiltrates both lower lobes more prominent right side than left and now is involvement of the right upper lobe. Dictated by: Dr. Mk Reno MD 10/01/2020 17:01 Dr. Mk Reno MD in OV 10/01/2020 17:01
--- NOTE | 2020-10-01 13:10 | PC.NURSE ---
PT DIFFICULT IV STICK
[2020-10-01 13:25] LABS: ABG Base Excess -0.5 mmol/L (-2.4-2.3); ABG HCO3 23.6 mmhg (22.0-26.0); ABG Oxygen Saturation 88 % (90-100); ABG PCO2 35.5 mmhg (35.0-45.0); ABG PH 7.44 mmol/L (7.35-7.45); ABG TCO2 24.7 mmhg (23-27)
[2020-10-01 13:30] LABS: Allen's Test Acceptable; Oxygen 6 LPM NC %; Source Right Radial
--- NOTE | 2020-10-01 13:38 | HMH.EDGENADL ---
ED Disposition Clinical Impression: Pneumonia due to COVID-19 virus Burn of nose Qualifiers: Encounter type: initial encounter Burn degree: partial thickness (2nd degree) Qualified Code(s): T20.24XA - Burn of second degree of nose (septum), initial encounter Respiratory failure with hypoxia Qualifiers: Chronicity: acute Qualified Code(s): J96.01 - Acute respiratory failure with hypoxia Disposition: Admitted as Observation Condition on Discharge: Fair Referrals: PCP,No [Primary Care Provider] - - Critical Care Critical Care Time: Yes Attestation: On 10/01/20, the high probability of a clinically significant, sudden or life threatening deterioration of the following system(s) required my full and direct attention, intervention and personal management. The time I documented below is in addition to time spent performing reported procedures but includes the following listed in this critical care notation. Total Critical Care Time: 30 Vital system(s) involved:: Respiratory Failure My critical care processes included: Assessment & monitoring of V/S, Initial and Re-exams, Data Review/Interpretation, Coordinating Care, Medication Orders and management, Documentation Medical Decision Making - Medical Records Medical records reviewed: Yes: I reviewed the patient's medical records. MR Comment: Reviewed recent admission 09/17/2020 through 09/23/2020. Diagnosed with Covid pneumonia. Discharged on oxygen and Omnicef. - Harvey Inquiry Pt receiving controlled substance: No Vital Signs: 10/01/20 13:00 10/01/20 13:01 10/01/20 13:40 Temperature 98 F Temperature Source Oral Pulse Rate [Radial] 111 H 106 H 109 H Respiratory Rate 28 H 18 20 Blood Pressure [Right Arm] 156/86 H 156/89 H 205/114 H Blood Pressure Mean [Right Arm] 109 111 144 Blood Pressure Source [Right Arm] Automatic Cuff Blood Pressure Position [Right Arm] Sitting Sitting Supine 02 Sat by Pulse Oximetry 78 L 93 L 92 L Oxygen Delivery Method Room Air Nasal Cannula Nasal Cannula Oxygen Flow Rate (LPM) 5 6 10/01/20 14:00 10/01/20 14:30 10/01/20 15:01 Temperature Temperature Source Pulse Rate [Radial] 129 H 110 H 103 H Respiratory Rate 21 20 20 Blood Pressure [Right Arm] 152/91 H 153/80 H 158/94 H Blood Pressure Mean [Right Arm] 111 104 115 Blood Pressure Source [Right Arm] Blood Pressure Position [Right Arm] Supine 02 Sat by Pulse Oximetry 92 L 90 L 97 Oxygen Delivery Method Nasal Cannula Nasal Cannula Oxygen Flow Rate (LPM) 6 6 10/01/20 16:21 10/01/20 16:30 10/01/20 17:03 Temperature Temperature Source Pulse Rate [Radial] 96 H 105 H 97 H Respiratory Rate 18 20 20 Blood Pressure [Right Arm] 141/91 H 142/90 H 182/115 H Blood Pressure Mean [Right Arm] 107 107 137 Blood Pressure Source [Right Arm] Automatic Cuff Blood Pressure Position [Right Arm] Supine Supine 02 Sat by Pulse Oximetry 98 99 95 Oxygen Delivery Method Nasal Cannula Nasal Cannula Nasal Cannula Oxygen Flow Rate (LPM) 6 5 2 - Lab Data Lab Results 10/01/20 13:04: Specimen Source Right radial, O2 % 6 lpm nc, ABG pH 7.44, ABG pCO2 35.5, ABG pO2 56.0 L, ABG HCO3 23.6, ABG Total CO2 24.7, ABG O2 Saturation 88 L, ABG Base Excess -0.5, Zechariah Test Acceptable 10/01/20 14:08: WBC 13.2 H, RBC 3.94 L, Hgb 11.5 L, Hct 35.2 L, MCV 89.3, MCH 29.1, MCHC 32.6, RDW 17.6 H, Plt Count 306, MPV 7.5, Neut % (Auto) 93.9 H, Lymph % (Auto) 3.5 L, [place] % (Auto) 2.6, Eos % (Auto) 0.0 L, Baso % (Auto) 0.1, Neut # (Auto) 12.4 H, Lymph # (Auto) 0.5 L, [place] # (Auto) 0.3, Eos # (Auto) 0.0, Baso # (Auto) 0.0, Total Counted 100, Neutrophils % (Manual) 94 H, Lymphocytes % (Manual) 5 L, Monocytes % (Manual) 1 L, Hypersegmented Neuts 1+, Platelet Estimate Normal, RBC Morphology Normal 10/01/20 14:08: Sodium 139, Potassium 3.5, Chloride 100, Carbon Dioxide 31 H, Anion Gap 11.5, BUN 17, Creatinine 0.50 L, Estimated Creat Clear 107, Estimated GFR 170, Est GFR ( Amer) 206, Glucose 165 H, Calcium 9.2
--- NOTE | 2020-10-01 13:51 | PC.NURSE ---
called lab for blood draw
--- NOTE | 2020-10-01 14:20 | ECG_ITS ---
APPROVED REPORT Exam: Resting ECG HR:103 bpm ECG Measurements Heart Rate 103 AXES VA 114 P 78 QRSd 80 QRS 74 QT 320 T 70 QTc 419 Conclusion Sinus tachycardia with premature atrial complexes with aberrant conduction Otherwise normal ECG Electronically signed by : Jose Ring, 10/01/2020 19:51:35
[2020-10-01 14:22] LABS: Basophils % 0.1 % (0.1-2.0); Hematocrit 35.2 % (42.0-52.0); Hemoglobin 11.5 g/dL (14.1-18.0); Lymphocytes # 0.5 K/mm3 (0.7-4.5); Lymphocytes % 3.5 % (10-50); Mean Corpuscular HGB Conc 32.6 g/dL (31.8-35.4); Mean Corpuscular Hemoglobin 29.1 pg (27.0-31.2); Mean Corpuscular Volume 89.3 fl (80-94); Mean Platelet Volume 7.5 fl (7.4-10.4); Monocytes # 0.3 K/mm3 (0.1-1.0); Monocytes % 2.6 % (1.7-9.3); Neutrophils # 12.4 K/mm3 (1.8-7.8); Neutrophils % 93.9 % (37.0-80.0); Platelet Count 306 K/mm3 (142-424); Red Blood Count 3.94 M/mm3 (4.60-6.20); Red Cell Distribution Width 17.6 % (11.5-17.5); White Blood Count 13.2 K/mm3 (4.8-10.8)
[2020-10-01 14:23] LABS: MANUAL DIFFERENTIAL MANUAL DIFFERENTIAL (MANUAL DIFF)
[2020-10-01 14:32] LABS: Alanine Aminotransferase 103 U/L (12-78); Albumin Level 3.1 g/dl (3.5-5.0); Albumin/Globulin Ratio 0.7 (1.1-1.8); Alkaline Phosphatase 529 U/L (38-126); Anion Gap 11.5 mEq/L (5-15); Aspartate Amino Transferase 57 U/L (17-59); Bilirubin,Total 0.6 mg/dl (0.2-1.3); Blood Urea Nitrogen 17 mg/dl (9-20); Calcium 9.2 mg/dl (8.4-10.2); Carbon Dioxide 31 mmol/L (22.0-30.0); Chloride 100 mmol/L (98-107); Creatinine Clearance Estimated 107 mL/min (50-200); Estimated Glomerular Filt Rate 170 ml/min (>60); GFR (African American) 206 ML/MIN (>60); Globulin 4.3 g/dL (1.3-3.2); Glucose 165 mg/dl (74-100); Potassium 3.5 mmoL/L (3.5-5.1); Sodium 139 mmol/L (136-145); Total Protein,Serum 7.4 g/dl (6.3-8.2)
[2020-10-01 14:33] LABS: Microscopic, Urine URINE MICROSCOPIC (MICROSCOPIC)
[2020-10-01 14:40] LABS: Lactic Acid 2.7 mmol/L (0.7-2.1)
[2020-10-01 14:45] LABS: Appearance,Urine CLEAR (Clear); Bilirubin,Urine Negative (Negative); Blood, Urine TRACE-I (Negative); Color,Urine YELLOW (Yellow); Glucose,Urine (UA) Negative (Negative); Ketones,Urine Negative (Negative); Leukocyte Esterase,Urine TRACE (Negative); Nitrate,Urine Negative (Negative); Protein,Urine 1+ (Negative); Specific Gravity, Urine 1.015 (1.005-1.030); Urobilinogen,Urine 0.2 EU/dl (0.2)
[2020-10-01 14:46] LABS: Coronavirus 19 IgG Antibody Positive (Negative)
[2020-10-01 14:47] LABS: Coronavirus 19 IgM Antibody Positive (Negative); Troponin I < 0.01 ng/ml (0.00-0.034)
[2020-10-01 14:49] LABS: Hypersegmented Neutrophils 1+; Lymphocytes % 5 % (10-50); Monocytes % 1 % (2-9); Neutrophils % 94 % (42-76); Platelet Estimate Normal; Procalcitonin 0.482 ng/mL (0.0-2.0); RBC Morphology Normal; Total Cells Counted 100
--- NOTE | 2020-10-01 14:57 | CT_ITS ---
PROCEDURE: CT ANGIO CHEST Referring Doctor: Andreas Suero Patient Age:60Y CLINCIAL INDICATION: covid pneumonia, soa hypoxia current smoker COMPARISON: CT CT ANGIO CHEST from 09/17/2020 TECHNIQUE: IV Contrast: 70ML Isovue 370 followed by 40 mL normal saline Axial images obtained with sagittal and coronal reformats. All CT scans at the facility use one or more dose reduction, viz: automated exposure control, ma/kV adjustment per patient size (including targeted exams where dose is matched to indication, i.e. head), or iterative reconstruction technique. FINDINGS: PULMONARY ARTERIES: No pulmonary embolus evident. AORTA: No acute finding. No thoracic aortic aneurysm or dissection evident. Mild calcified and noncalcified plaque at aortic arch and descending aorta LUNGS: Unremarkable. No mass or consolidation. When compared to September 17 there has been additional density at the periphery of the right lower lobe of reflecting progressive patchy dense areas of consolidation. Low-density mainly interstitial infiltrate is seen throughout the periphery of the right upper lobe but these have progressed slightly as well. Left lung: Progression dense atelectasis and infiltrate posterior aspect of the left lower lobe pulled at left mid lung. Rather linear character here reflect a significant component of atelectasis adding to this density.. Progressive patchy infiltrates seen throughout lingula as well as patchy infiltrates throughout the periphery of the left lower lobe. These features are superimposed upon a background emphysematous changes at the lung still bilaterally. Bleb formation most evident adjacent mediastinum and posterior aspect of the right lung Hyperexpansion at upper lung still apices.. No pleural effusions but no pneumothorax.. PLEURAL SPACES: No significant effusion. No evidence of pneumothorax. HEART: Unremarkable. Normal heart size. No significant pericardial effusion. MEDIASTINAL AND HILAR STRUCTURES: Right hilar fullness and lymphadenopathy towards superior right stew axial image 57, similar to previous study BONY STRUCTURES: . Stable developing degenerative changes T-spine some motion artifact impairs evaluation of the lower ribs UPPER ABDOMEN: Patient is quite thin with hazy appearance of the abdominal aorta. The upper abdomen suggesting possible diffuse edematous state.. This small fluid collection along the posterior aspect the liver is again noted and unchanged IMPRESSION: No evidence of pulmonary embolism.,. Progression of the bilateral pneumonia since September 17 Diffuse patchy areas of infiltrate and consolidation bilaterally have shown progression. most pronounced progressive patchy areas dense consolidation at the posterior RLL Right hilar fullness/lymphadenopathy again evident Underlying emphysema/COPD Hazy appearance fat throughout upper abdomen and subcutaneous region-suspect for diffuse edematous state/hyperproteinemia. Clinical correlation required. Question this very thin patient's nutritional status Dictated by: Gerardo Badillo MD 10/01/2020 19:49 Gerardo Badillo MD in [place] 10/01/2020 19:49
--- NOTE | 2020-10-01 15:00 | PC.NURSE ---
PT RESTING UPDATED ON PLAN OF CARE
[2020-10-01 15:51] LABS: Adenovirus,PCR Not Detected (NotDetected); Bordetella Pertussis Not Detected (NotDetected); Chlamydophila Pneumoniae, PCR Not Detected (NotDetected); Coronavirus 229E Not Detected (NotDetected); Coronavirus NL63 Not Detected (NotDetected); Coronavirus OC43 Not Detected (NotDetected); Coronovirus HKU1,PCR Not Detected (NotDetected); Human Metapneumovirus Not Detected (NotDetected); Influenza A, PCR Not Detected (NotDetected); Influenza AH1, 2009 Not Detected (NotDetected); Influenza AH1, PCR Not Detected (NotDetected); Influenza AH3,PCR Not Detected (NotDetected); Influenza B, PCR Not Detected (NotDetected); Mycoplasma Pneumoniae, PCR Not Detected (NotDetected); Parainfluenza 1, PCR Not Detected (NotDetected); Parainfluenza 2, PCR Not Detected (NotDetected); Parainfluenza 3, PCR Not Detected (NotDetected); Parainfluenza 4, PCR Not Detected (NotDetected); Respiratory Syncytial Virus Not Detected (NotDetected); Rhinovirus/Enterovirus Not Detected (NotDetected)
--- NOTE | 2020-10-01 16:00 | PC.NURSE ---
OFFERS NO C/O AT PRESENT
[2020-10-01 17:16] LABS: Coronavirus 19, PCR Detected (NotDetected)
--- NOTE | 2020-10-01 17:54 | PC.NURSE ---
REPORT CALLED TO FLOOR
[2020-10-01 18:16] LABS: Reflex Lactic Add Lactic Reflex
--- NOTE | 2020-10-01 18:50 | PC.NURSE ---
LAB AT BEDSIDE
[2020-10-01 19:12] LABS: Lactic Acid Follow Up (RFLX 1) 1.8 mmol/L (0.7-2.1)
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
[2020-10-02] VITALS (8 sets, daily range): BP systolic 96–149; BP diastolic 71–92; PULSE 85–108; RESP 17–22; TEMP 36.4–37.1; O2SAT 90–94; BMI 14.4; BMI 14.3
--- NOTE | 2020-10-02 | PC.WOUNDNOTE ---
Wound Location: Length:5cm Width:3.5cm Depth: Undermining Y/N:yes Tunneling cm: Granulation %: Slough/necrotic tissue %: 50 Inflammation/swelling Y/N:no Pain and/or tenderness Y/N: pain Exudate: Purulent Color: [place] Red Yellow white black Consistency: Thin Amount: Scant Odor Y/N: no
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
[2020-10-02 06:33] LABS: Eosinophils % 0.1 % (0.1-12.0); Hematocrit 32.3 % (42.0-52.0); Lymphocytes # 0.8 K/mm3 (0.7-4.5); Lymphocytes % 10.5 % (10-50); Mean Corpuscular HGB Conc 29.6 g/dL (31.8-35.4); Mean Corpuscular Hemoglobin 27.1 pg (27.0-31.2); Mean Corpuscular Volume 91.7 fl (80-94); Mean Platelet Volume 7.2 fl (7.4-10.4); Monocytes # 0.4 K/mm3 (0.1-1.0); Monocytes % 4.7 % (1.7-9.3); Neutrophils # 6.4 K/mm3 (1.8-7.8); Neutrophils % 84.8 % (37.0-80.0); Platelet Count 269 K/mm3 (142-424); Red Blood Count 3.52 M/mm3 (4.60-6.20); Red Cell Distribution Width 16.9 % (11.5-17.5); White Blood Count 7.5 K/mm3 (4.8-10.8)
[2020-10-02 07:03] LABS: Hemoglobin 9.6 g/dL (14.1-18.0)
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
--- NOTE | 2020-10-02 11:10 | HMH.PTWOUND ---
Rehab Inpt Wound Evaluation Rehab IP Wound Evaluation Start: 10/02/20 09:29 Freq: ONCE Status: Active Protocol: Document 10/02/20 10:48 PWKAROL (Rec: 10/02/20 11:10 [email or web address] [id number]) Rehab PT Wound Assessment Patient Status Premedicated Prior to Dressing Change No Subjective Subjective Pt reports severe c/o pain in periwound area and wound - pt also c/0 8/10 in his whole back b/c his bed at home has rails where I can get pressure off my back Wound Right Upper Posterior Sacrum Wound Type Pressure Ulcer Is This a Chronic Wound Yes Wound Staging Beyond Stage IV Query Text:Stage I - Unbroken, red skin, no blanching. Stage II - Skin broken, superficial skin loss involving epidermis alone or also dermis. Partial loss of skin layers. Stage III - Pressure area involves epidermis, dermis and subcutaneous tissue, full thickness skin loss. Stage IV - Pressure area involves epidermis, subcutaneous tissue, bone and other supportive tissue. Full thickness skin loss with extensive destruction of underlying tissue and structures. Wound Length (cm) 6.0 Wound Width (cm) 3.0 Wound Depth (cm) 1.0 Wound Bed Appearance [place],Yellow,White,Necrotic, Undermining,Tunneling Percentage of Slough (%) 100 Percentage of Eschar (Yellow) (%) 75 Wound Margins Description Roll Under Edges Undermining Position 12-12 Undermining Length (cm) 5.0 Undermining Depth (cm) 2.0 Surrounding Tissue Appearance [place],Edges Rolled Wound Drainage Description Serous Drainage Amount Moderate Drainage Odor No Odor Dressing Status Soiled Wound Topical Solution/Irrigant Antibiotic Irrigant Packing Type Gauze Pads Comment betadyne gauze Primary Dressing Absorbant Pad Comment ABD pad Wound Debridement Amount of Tissue None Removed Dressing Change Date 10/02/20 Dressing Change Patient Tolerance Tolerated Poorly Plan/Recommendation Comment Pt has significant decubitus ulcer or R sacrum. Sacral bone is visible, w/ significant non-viable tissue and slough as well. Pt will
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
--- NOTE | 2020-10-02 18:56 | PC.NURSE ---
PT IS RESTING IN BED. PT HAS STATED HE HAS BEEN IN PAIN T/O THE SHIFT EVEN AFTER HAVING PO PAIN MEDICATION. PT STATES ALL HE WANTS IS A SHOT OF MORPHINE. EARLIER PT CALLED OUT AND STATED HE WANTED TO GO HOME B/C IF HE DID NOT GO HOME TODAY HE WAS NOT GOING TO HAVE A RIDE TILL WEDNESDAY. JESSICA TYLER WAS NOTIFIED AND STATED THE ONLY WAY PT COULD LEAVE TODAY WAS IF SIGNED OUT AMA B/C HE WAS NOT READY TO BE DISCHARGED. O2 SATURATION HAS MAINTAINED 90-96% ON 3 L NC BUT PT'S O2 SATURATION WILL DROP QUICKLY WHEN O2 IS REMOVED. LUNG SOUNDS HAVE RHONCHI T/O. ABDOMEN FLAT WITH ACTIVE BOWEL SOUNDS. COLOSTOMY NOTED TO THE ABDOMEN. UNSTAGEABLE ULCER NOTED TO SACRUM. PHYSICAL THERAPY APPLIED BETADINE DRESSING THIS SHIFT. PT REFUSED TO TURN ON EITHER SIDE. PT'S SON CALLED THIS EVENING AND STATED IT WOULD BE BEST IF PT WENT SOME PLACE FOR REHAB B/C PT HAS NOT BEEN LETTING HIS AUNT TAKE CARE OF HIM AT HOME THE WAY HE NEEDS TO BE AND PT IS UNWILLING TO HELP HIMSELF. PT NO LONGER HAS IV ACCESS. NEW IV ACCESS ATTEMPTED X6 AND WAS UNSUCCESSFUL. PCP NOTIFIED AND HE STATED ANTIBIOTIC CAN BE SWITCHED TO PO. WILL CONTINUE TO MONITOR.
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
[2020-10-03 01:11] VITALS: O2SAT 97
[2020-10-03 03:59] VITALS: BP 161/92; PULSE 101; RESP 20; TEMP 36.6; O2SAT 94
[2020-10-03 04:40] VITALS: BMI 14.4
--- NOTE | 2020-10-03 04:41 | PC.NURSE ---
O2 sats 92-97% on 3l nc. Intermittent productive cough noted with dark yellow sputum. Inspiratory wheezes, rhonchi and expiratory rhonchi noted t/o bilat. lungs. Pt. c/o some soa with movement. Pt. reports increased appetite. No c/o n/v or dizziness. Pt. c/o coccyx pain x2; tx with prn meds. Dsg to coccyx reinforced at 0400, currently c/d/i. Pt. educated and demonstrates understanding of importance of t/r q2h.
[2020-10-03 08:00] VITALS: BP 162/95; PULSE 114; RESP 20; TEMP 36.8; O2SAT 91
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
[2020-10-03 11:37] VITALS: PULSE 71; O2SAT 96
[2020-10-03 12:00] VITALS: BP 143/91; PULSE 102; RESP 20; TEMP 36.7; O2SAT 91
--- NOTE | 2020-10-03 12:41 | PC.NURSE ---
Pt alert and oriented and able to make needs known. 02 at 3 L. Dsg to coccyx cleaned and changed. D/c instructions given and son pt states son is going to p/u. [facility] has brought 02 and pt states he uses [facility]. Have lm for [facility] in re to this.
--- NOTE | 2020-10-03 14:11 | PC.NURSE ---
Pts meds left here at d/c. Called and lm on son fior's voicemail to p/u at 1411.
--- NOTE | 2020-10-03 17:33 | PC.NURSE ---
Pt 's family, sister in law did call back and express there was no way to come back and get meds, prior to this i had spoke with Janeth Pereira and care management and live in housekeeper, whom stated we weren't able to transfer meds to pt r/t liability. This nurse also called Dr. Thompson to see if he was able to call scripts in, before i received a response from Dr Thompson, pt's son was here to pick medications up and stated he guessed he would have to drive them to him. Pt's composition weatherboard applier was also left and sent with son as well.
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
== END 2020-10-03 13:30 | disposition home health service (06) | DRG 177 ==
LOC: ER 17:21 → ICU 17:42
PROVIDERS: Admitting Provider Family Medicine; Emergency Provider Emergency Medicine; Visit Provider Family Medicine
DX: U07.1 COVID-19 (principal); L89.154 Pressure ulcer of sacral region, stage 4; J12.89 Other viral pneumonia; J96.01 Acute respiratory failure with hypoxia; Z93.3 Colostomy status; Z90.49 Acquired absence of other specified parts of digestive tract; I10 Essential (primary) hypertension; Z79.52 Long term (current) use of systemic steroids; J44.9 Chronic obstructive pulmonary disease, unspecified; Z72.0 Tobacco use; Z99.81 Dependence on supplemental oxygen; T20.24XA Burn of second degree of nose (septum), initial encounter; X08.8XXA Exposure to other specified smoke, fire and flames, initial encounter; Y92.019 Unspecified place in single-family (private) house as the place of occurrence of the external cause
CPT/HCPCS: 36415; 71045; 71275; 80053; 81001; 82803; 83605; 84145; 84484; 85007; 85025; 86328; 87040; 87070; 87077; 87186; 87205; 87581; 87633; 87798; 93005; 94640; 99285; Q9967